=== PATIENT | female | born 1955 | race Caucasian/White ===

== ENCOUNTER 2020-07-13 06:48 | Outpatient (NON) | payer BC, SELFPAY ==
[2020-07-13 23:39] LABS: SARS-CoV-2 RNA PCR Negative
== END 2020-07-13 06:49 ==
PROVIDERS: PCP Family Medicine; Visit Provider Nurse Practitioner Family
DX: R05 Cough (principal); R53.1 Weakness; Z20.822 Contact with and (suspected) exposure to COVID-19
CPT/HCPCS: C9803; U0003

== ENCOUNTER → 2021-07-04 08:21 | Outpatient (CLI) | payer MEDICARE, OTHER, SELFPAY ==
--- NOTE | ~2021-07-04 | MR_ITS ---
EXAMINATION: MR shoulder LT wo con DATE: 07/04/2021 09:33 INDICATION: Left shoulder pain. TECHNIQUE: Magnetic resonance imaging (MRI) of the left shoulder was performed without intravenous co ntrast. Sequences included axial PD-weighted FS FSE, coronal oblique PD-weighted FS FSE and T2-weight ed FS FSE, and sagittal oblique T2-weighted FS FSE and T1-weighted FSE. COMPARISON: None. FINDINGS: Coracoacromial arch: The acromion undersurface is curved in morphology (type II). There is moderate acromioclavicular join t osteoarthritis. There is mild subacromial/subdeltoid bursitis. Rotator cuff: There is moderate supraspinatus tendinopathy and mild infraspinatus tendinopathy. Teres minor tendon is normal. Subscapularis tendon is normal. There is no asymmetric fatty atrophy of the rotator cuff m uscle bellies. Biceps tendon and glenoid labrum: Biceps tendon is in bicipital groove. There is moderate intra-articular biceps tendinopathy. There is a tear of the glenoid labrum from 11:00 to 12:00 (SLAP tear). Fluid: There is a small glenohumeral joint effusion. Bones/cartilage: There is shallow partial-thickness cartilage loss of glenoid and humeral head with mild subchondral e nelida-like signal intensity. IMPRESSION: 1. Moderate rotator cuff tendinopathy. No tear. 2. Mild glenohumeral joint chondrosis. SLAP tear. 3. Mild intra-articular biceps tendinopathy. 4. Mild subacromial/subdeltoid bursitis. 5. Small glenohumeral joint effusion. 6. Moderate acromioclavicular joint osteoarthritis. Reviewed, dictated and finalized at location A. 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
== END ==
PROVIDERS: PCP Family Medicine; Visit Provider Nurse Practitioner Adult Health
DX: M25.512 Pain in left shoulder (principal); M75.82 Other shoulder lesions, left shoulder; S43.432A Superior glenoid labrum lesion of left shoulder, initial encounter; M75.52 Bursitis of left shoulder; M25.412 Effusion, left shoulder; M19.012 Primary osteoarthritis, left shoulder
CPT/HCPCS: 73221

== ENCOUNTER → 2022-08-08 09:49 | Outpatient (CLI) | payer MEDICARE, OTHER, SELFPAY ==
--- NOTE | ~2022-08-08 | MR_ITS ---
MRI of the cervical spine Clinical History: Spondylosis Technique: Axial T2-weighted and gradient images, and sagittal T1-weighted, T2-weighted, and STIR jj ges were acquired. Findings: There is no fracture or subluxation of the cervical spine. Vertebral bodies maintain normal height and alignment. No focal bone marrow signal reality seen. At C2-C3, there is no disc bulge or herniation. No spinal canal stenosis, cord compression, or neural foraminal narrowing. At C3-C4, there is no disc bulge or herniation. No spinal canal stenosis, cord compression, or neural foraminal narrowing. At C4-C5, there is mild disc osteophyte complex, which minimally flattens the ventral cord. Bilateral neural foramina are mildly narrowed At C5-C6, there is mild disc osteophyte complex, resulting in mild flattening of the ventral cord. Bi lateral neural foramina are preserved. At C6-C7, there is central disc osteophyte complex resulting in mild to moderate canal stenosis and c ord compression. Bilateral neural foramina are preserved. No abnormal signal seen in the spinal cord. Paravertebral soft tissues are unremarkable. Impression: Mild to moderate canal stenosis and cord compression at C6-C7, related to central disc osteophyte com plex. Additional small disc osteophyte complexes at C4-C5 and C5-C6, which result in minimal flattening of the ventral cord. Reviewed, dictated and finalized at [facility]. 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 Additional small disc osteophyte complexes at C4-C5 and C5-C6, which result in minimal flattening of the ventral cord.
== END ==
PROVIDERS: PCP Family Medicine
DX: R29.2 Abnormal reflex (principal); M47.812 Spondylosis without myelopathy or radiculopathy, cervical region
CPT/HCPCS: 72141

== ENCOUNTER 2024-11-03 15:44 | Emergency (ER) | payer MEDICARE, OTHER, SELFPAY ==
--- NOTE | ~2024-11-03 | XR_ITS ---
XR chest 2V Ordering provider: Tee Cook MD History: 69 years Female with . CP, SOME SOB . Comparison: June 03, 2006 the FINDINGS: MEDIASTINUM: The cardiac silhouette is not enlarged. LUNGS: No infiltrates, effusions or pneumothorax. OTHER: No free air under the diaphragm. IMPRESSION: No acute cardiopulmonary pathology. Reviewed, dictated and finalized at location A.
--- NOTE | ~2024-11-03 | CT_ITS ---
CTA brain carotid Ordering provider: Lenore Piper III, DO History: . [place] . Comparison: Bl Technique: CT angiogram head and neck was performed following timed intravenous injection of contrast . Thin slice axial images and reformatted coronal images were obtained. Three dimensional reformatted images of the brain were also obtained using a [email or web address] workstation. Radiation reduction technique ut ilized.The dose-length product was 1517.82 mGy-cm. 100 mL Omnipaque 350 was given IV. FINDINGS: HEAD: --ANTERIOR AND MIDDLE CEREBRAL ARTERIES AND BRANCHES: Normal caliber and contour. --INTERNAL CAROTID ARTERIES: no significant stenosis. No occlusion. --BASILAR ARTERY AND BRANCHES: Normal caliber and contour. No atheromatous disease. --POSTERIOR CEREBRAL ARTERIES: Normal caliber and contour --POSTERIOR COMMUNICATING ARTERIES: The left is noted and continues as the posterior cerebral artery. The right is marked visualized which is probably related to congenital absence or small size. --ANEURYSM: None visualized. --BRAIN: Normal for patient's age. --BONES AND SUPERFICIAL SOFT TISSUES: Normal. --PARANASAL SINUSES AND MASTOIDS: Well aerated. NECK: --RIGHT CERVICAL CAROTID SYSTEM: Normal caliber and contour. Percent stenosis per NASCET criteria is 0%. No carotid dissection. Otherwise, no significant atheromatous disease or stenosis of the cervical carotid system. --LEFT CERVICAL CAROTID SYSTEM: Normal caliber and contour. Percent stenosis per NASCET criteria is 0%. No carotid dissection. Otherwise, no significant atheromatous disease or stenosis of the cervical carotid system. --VERTEBRAL ARTERIES: Normal caliber and contour. --VISUALIZED AORTIC ARCH AND BRANCHING VESSELS: Normal. --SOFT TISSUES: Normal. --CERVICAL SPINE: Age appropriate degenerative changes. Prominent osteophyte seen at the level of C6-C7. MRI is advised to exclude cord compression. IMPRESSION: 1. Normal CTA head. 2. Normal CTA of the neck . Percent stenosis per NASCET criteria is 0%. 3. Left posterior communicating artery continues as the left posterior cerebral artery. 4. Very prominent osteophytes at the level of C6-C7. MRI is advised to evaluate for cord compression . Reviewed, dictated and finalized at location A. IMPRESSION: 1. Normal CTA head. 2. Normal CTA of the neck . Percent stenosis per NASCET criteria is 0%. 3. Left posterior communicating artery continues as the left posterior cerebra l artery. 4. Very prominent osteophytes at the level of C6-C7. MRI is advised to evaluat e for cord compression.
--- NOTE | 2024-11-03 15:46 | ECG_ITS ---
Test Date: 2024-11-03 15:56:59 Measurements Intervals [place] Rate: 74 P: 71 MA: 167 QRS: 66 QRSD: 80 T: 66 QT: 382 QTc: 426 Interpretive Statements SINUS RHYTHM No previous ECG available for comparison Electronically Signed On 11-03-2024 19:15:39 CDT by Margi Becker
[2024-11-03 15:57] VITALS: BP 163/80; PULSE 81; RESP 16; TEMP 36.9; O2SAT 100
[2024-11-03 16:10] LABS: Basophils Percent Auto 0.7 % (0.2-1.2); Eosinophils Absolute Auto 0.2 K/mm3 (0-0.3); Eosinophils Percent Auto 5.1 % (0-4.4); Hematocrit 36.8 % (37.0-47.0); Hemoglobin 12.4 g/dL (12.0-15.0); Immature Granulocyte Absolute 0.01 K/mm3 (0.00-0.031); Immature Granulocyte Percent A 0.2 % (0-0.5); Lymphocytes Absolute Auto 0.99 K/mm3 (0.9-3.2); Lymphocytes Percent Auto 22.8 % (18.3-44.2); Mean Corpuscular HGB Conc 33.7 g/dl (32-36); Mean Corpuscular Hemoglobin 31.7 pg (26-34); Mean Corpuscular Volume 94.1 fl (80-100); Mean Platelet Volume 9.7 fl (7.4-10.4); Monocytes Absolute Auto 0.6 K/mm3 (0.1-0.6); Monocytes Percent Auto 14.7 % (2.6-8.5); Neutrophils Absolute Auto 2.5 K/mm3 (1.3-6.7); Neutrophils Percent Auto 56.5 % (45.5-73.1); Platelet Count Result 255 k/mm3 (150-375); Red Blood Count 3.91 M/mm3 (4.2-5.4); Red Cell Distribution Width 12.7 % (11.5-14.5); White Blood Count 4.3 K/mm3 (4.5-10.0)
[2024-11-03 16:22] LABS: INR 0.9; Prothrombin Time 12.6 Seconds (11.1-14.7)
[2024-11-03 16:23] LABS: Partial Thromboplastin Time 22.6 Seconds (22.3-36.8)
[2024-11-03 16:26] LABS: Alanine Aminotransferase 10 U/L (6-35); Albumin Level 4.8 g/dL (3.5-5.1); Alkaline Phosphatase 59 U/L (38-126); Anion Gap 11 mmol/L (4-12); Aspartate Amino Transferase 30 U/L (14-36); Bilirubin,Total 0.4 mg/dL (0.2-1.3); Blood Urea Nitrogen 17 mg/dL (7-17); Carbon Dioxide 24 mmol/L (22-30); Chloride 103 mmol/L (98-107); Estimated CRCL calculation 48 ml/min; Estimated Glomerular Filt Rate > 60; Glucose 93 mg/dL (65-110); Lipase 104 U/L (23-300); Potassium 3.6 mmol/L (3.4-5.0); Sodium 138 mmol/L (137-145)
--- NOTE | 2024-11-03 16:35 | ED_ITS ---
HPI - Chest Pain General Chief Complaint: Chest Pain <Lenore Piper III, DO - Last Filed: 11/07/24 15:31> Stated Complaint: Chest pain ,neck/jaw and shortness of breath <Lenore Piper III, DO - Last Filed: 11/07/24 15:31> Time Seen by Provider: 11/03/24 16:25 <Lenore Piper III, DO - Last Filed: 11/07/24 15:31> History of Present Illness HPI narrative: Pt presents with left neck and jaw pain. Pt has had this off and on for a few weeks and has seen ENT. Pt says today the pain got worse and she felt a little SOB so she thought she should get checked out. Pt unsure if she had pain in chest. Pt also has ALVARENGA and is concerned about FH of aneurysm. <Lenore Piper III, DO - Last Filed: 11/07/24 15:31> Related Data Home Medications: Home Medications ?Medication ?Instructions ?Recorded ?Confirmed ?Last Taken ?Type folic acid 1 mg tablet 1 mg PO DAILY 07/25/24 08/07/24 08/07/24 History methotrexate sodium 2.5 mg tablet See Rx Instructions PO WEEKLY 07/25/24 08/07/24 08/04/24 History <Lenore Piper III, DO - Last Filed: 11/07/24 15:31> Allergies/Adverse Reactions: Allergies Allergy/AdvReac Type Severity Reaction Status Date / Time No Known Allergies Allergy Mild Verified 11/03/24 15:45 <Lenore Piper III, DO - Last Filed: 11/07/24 15:31> Review of Systems 2 Review of Systems: All systems reviewed & are unremarkable except as noted in HPI and below <Lenore Piper III, DO - Last Filed: 11/07/24 15:31> PMFSH Past Medical History Medical History: Medical History (Updated 11/04/24 @ 00:01 by Background [place]) Colon cancer screening <Lenore Piper III, DO - Last Filed: 11/07/24 15:31> Family History Family History: Family History (Updated 10/09/16 @ 23:56 by DOCTOR UNKNOWN) Mother Family history of osteoporosis, Onset Age: 83 Patient's mother is Sibling Family history of alcoholism Father Family history of alcoholism, Onset Age: 52 Patient's father is <Lenore Otilio Piper III, DO - Last Filed: 11/07/24 15:31> Social History Social History: Social History Smoking status: Never smoker Alcohol intake: current Drinks per week: 4 Substance use: never Substance use type: does not use Living arrangements: with family Spiritual care concerns: No <Lenore Otilio Piper III, DO - Last Filed: 11/07/24 15:31> Exam 2 Const: General: healthy appearing and no acute distress <Lenore Otilio Piper III, DO - Last Filed: 11/07/24 15:31> Nutritional Appearance: well nourished <Lenore Otilio Piper III, DO - Last Filed: 11/07/24 15:31> Orientation/consciousness: patient oriented x3 <Lenore Otilio Piper III, DO - Last Filed: 11/07/24 15:31> Limitations: no limitations <Lenore Otilio Piper III, DO - Last Filed: 11/07/24 15:31> HENMT: Head: normal to inspection <Lenore Otilio Piper III, DO - Last Filed: 11/07/24 15:31> Eyes: Conjunctivae: conjunctivae normal <Lenore Otilio Piper III, DO - Last Filed: 11/07/24 15:31> EOM: EOMs intact bilaterally <Lenore Otilio Piper III, DO - Last Filed: 11/07/24 15:31> Neck: Neck: normal visual inspection, no lymphadenopathy and no meningeal signs <Lenore Otilio Piper III, DO - Last Filed: 11/07/24 15:31> Resp: Effort & Inspection: normal respiratory effort <Lenore Otilio Piper III, DO - Last Filed: 11/07/24 15:31> Auscultation: clear to auscultation bilaterally <Lenore Otilio Piper III, DO - Last Filed: 11/07/24 15:31> Cardio: Rate: regular rate <Lenore Otilio Piper III, DO - Last Filed: 11/07/24 15:31> Rhythm: regular rhythm <Lenore Otilio Piper III, DO - Last Filed: 11/07/24 15:31> GI: Auscultation: normal bowel sounds <Lenore Otilio Piper III, DO - Last Filed: 11/07/24 15:31> Skin: General skin exam: normal color <Lenore Otilio Piper III, DO - Last Filed: 11/07/24 15:31> Rashes: no rashes <Lenore Otilio Piper III, DO - Last Filed: 11/07/24 15:31> Wounds: no wounds <Lenore Otilio Piper III, DO - Last Filed: 11/07/24 15:31> Neuro: General: patient oriented x3, moves all extremities and no focal motor deficits <Lenore Otilio Piper III, DO - Last Filed: 11/07/24 15:31> Speech: normal speech <Lenore Otilio Piper III, DO - Last Filed: 11/07/24 15:31> Extrem: General: normal to inspection and no clubbing, cyanosis or edema < Lenore Otilio Piper III, DO - Last Filed: 11/07/24 15:31> Psych: Mental Status: mental status grossly normal <Lenore Otilio Piper III, DO - Last Filed: 11/07/24 15:31> Affect: normal affect <Lenore Otilio Piper III, DO - Last Filed: 11/07/24 15:31> Attitude: cooperative <Lenore Otilio Piper III, DO - Last Filed: 11/07/24 15:31> Course Vital Signs Vital signs: Vital Signs Temperature 98.4 F 11/03/24 15:57 Pulse Rate 81 11/03/24 15:57 Respiratory Rate 16 11/03/24 15:57 Blood Pressure 163/80 H 11/03/24 15:57 Pulse Oximetry 100 11/03/24 15:57 Oxygen Delivery Room Air 11/03/24 15:57 Temperature 98.4 F 11/03/24 15:57 Pulse Rate 73 11/03/24 17:43 Respiratory Rate 16 11/03/24 17:43 Blood Pressure 127/66 11/03/24 17:43 Pulse Oximetry 100 11/03/24 17:43 Oxygen Delivery Room Air 11/03/24 15:57 <Lenore Otilio Piper III, DO - Last Filed: 11/07/24 15:31> Vital Signs Temperature 98.4 F 11/03/24 15:57 Pulse Rate 81 11/03/24 15:57 Respiratory Rate 16 11/03/24 15:57 Blood Pressure 163/80 H 11/03/24 15:57 Pulse Oximetry 100 11/03/24 15:57 Oxygen Delivery Room Air 11/03/24 15:57 Temperature 98.4 F 11/03/24 15:57 Pulse Rate 73 11/03/24 17:43 Respiratory Rate 16 11/03/24 17:43 Blood Pressure 127/66 11/03/24 17:43 Pulse Oximetry 100 11/03/24 17:43 Oxygen Delivery Room Air 11/03/24 15:57 <Daniel Wood MD - Last Filed: 11/03/24 19:56> MDM - Chest Pain MDM Narrative Medical decision making narrative: Pt presents with left neck and jaw pain for weeks but worse today. Pain has been intermittent but lasting for hours when occurs. will do cardiac work up and also get CTA head and neck to rule out aneurysm or carotid issues. cta unremarkable, ekg and first trop and labs unremarkable. Pt does have osteophytes at c6-7 level on cta but no real posterior neck pain or radiculopathy. will turn over to dr Wood awaiting second trop. if neg should go home. discussse all this with pt and family. <Lenore Piper III, DO - Last Filed: 11/07/24 15:31> Pt presents with left neck and jaw pain for weeks but worse today. Pain has been intermittent but lasting for hours when occurs. Will do cardiac work up and also get CTA head and neck to rule out aneurysm or carotid issues. cta unremarkable, ekg and first trop and labs unremarkable. Pt does have osteophytes at c6-7 level on cta but no real posterior neck pain or radiculopathy. Will turn over to dr Wood awaiting second trop. If neg should go home. Discussse all this with pt and family. [place]: Patient was signed out to me pending 3 hour troponin. Troponin was obtained noted to be within normal limits. Patient was insert follow-up with your family doctor within next 3-5 days return to the emergency department if any new worsening symptoms develop. She was also provided with a Cardiology referral instructed to call set up a follow-up appointment regarding her chest pain She was provided with strict return precautions and discharged home in stable condition. <Daniel Wood MD - Last Filed: 11/03/24 19:56> Differential Diagnosis Differential diagnosis: Likely stable angina, unstable angina pectoris, atypical chest pain, st elevation myocardial infarction, costochondritis and chest pain <Daniel Wood MD - Last Filed: 11/03/24 19:56> Medical Records Data Attestation: I reviewed the patient's medical records. <Daniel Wood MD - Last Filed: 11/03/24 19:56> Lab Data Attestation: I reviewed the patient's lab results. <Daniel Wood MD - Last Filed: 11/03/24 19:56> Result diagrams: 11/03/24 16:03 11/03/24 16:03 <Lenore Piper III, DO - Last Filed: 11/07/24 15:31> Labs: Lab Results 11/03/24 11/03/24 Range/Units 16:03 19:08 WBC 4.3 L (4.5-10.0) K/mm3 RBC 3.91 L (4.2-5.4) M/mm3 Hgb 12.4 (12.0-15.0) g/dL Hct 36.8 L (37.0-47.0) % MCV 94.1 (80-100) fl MCH 31.7 (26-34) pg MCHC 33.7 (32-36) g/dl RDW 12.7 (11.5-14.5) % Plt Count 255 (150-375) k/mm3 MPV 9.7 (7.4-10.4) fl Immature Gran % (Auto) 0.2 (0-0.5) % Neut % (Auto) 56.5 (45.5-73.1) % Lymph % (Auto) 22.8 (18.3-44.2) % [place] % (Auto) 14.7 H (2.6-8.5) % Eos % (Auto) 5.1 H (0-4.4) % Baso % (Auto) 0.7 (0.2-1.2) % Lymph # (Auto) 0.99 (0.9-3.2) K/mm3 [place] # (Auto) 0.6 (0.1-0.6) K/mm3 Eos # (Auto) 0.2 (0-0.3) K/mm3 Baso # (Auto) 0.0 (0.0-0.1) K/mm3 Abs Immat Gran (auto) 0.01 (0.00-0.031) K/mm3 Absolute Neuts (auto) 2.5 (1.3-6.7) K/mm3 Absolute Nucleated RBC 0.000 (0.0-0.012) K/mm3 Nucleated RBC % 0.0 (0.0-0.2) % PT 12.6 (11.1-14.7) Seconds INR 0.9 APTT 22.6 (22.3-36.8) Seconds Sodium 138 (137-145) mmol/L Potassium 3.6 (3.4-5.0) mmol/L Chloride 103 (98-107) mmol/L Carbon Dioxide 24 (22-30) mmol/L Anion Gap 11 (4-12) mmol/L BUN 17 (7-17) mg/dL Creatinine 0.81 (0.7-1.0) mg/dL Estim Creat Clear Calc 48 ml/min Estimated GFR > 60 (59 - ) Glucose 93 (65-110) mg/dL Calcium 10.0 (8.4-10.2) mg/dL Total Bilirubin 0.4 (0.2-1.3) mg/dL AST 30 (14-36) U/L ALT 10 (6-35) U/L Alkaline Phosphatase 59 (38-126) U/L Troponin I < 0.012 < 0.012 (0.000-0.034) ng/mL Total Protein 9.0 H (6.3-8.2) g/dL Albumin 4.8 (3.5-5.1) g/dL Lipase 104 (23-300) U/L <Lenore Piper III, DO - Last Filed: 11/07/24 15:31> Lab Results 11/03/24 11/03/24 Range/Units 16:03 19:08 WBC 4.3 L (4.5-10.0) K/mm3 RBC 3.91 L (4.2-5.4) M/mm3 Hgb 12.4 (12.0-15.0) g/dL Hct 36.8 L (37.0-47.0) % MCV 94.1 (80-100) fl MCH 31.7 (26-34) pg MCHC 33.7 (32-36) g/dl RDW 12.7 (11.5-14.5) % Plt Count 255 (150-375) k/mm3 MPV 9.7 (7.4-10.4) fl Immature Gran % (Auto) 0.2 (0-0.5) % Neut % (Auto) 56.5 (45.5-73.1) % Lymph % (Auto) 22.8 (18.3-44.2) % [place] % (Auto) 14.7 H (2.6-8.5) % Eos % (Auto) 5.1 H (0-4.4) % Baso % (Auto) 0.7 (0.2-1.2) % Lymph # (Auto) 0.99 (0.9-3.2) K/mm3 [place] # (Auto) 0.6 (0.1-0.6) K/mm3 Eos # (Auto) 0.2 (0-0.3) K/mm3 Baso # (Auto) 0.0 (0.0-0.1) K/mm3 Abs Immat Gran (auto) 0.01 (0.00-0.031) K/mm3 Absolute Neuts (auto) 2.5 (1.3-6.7) K/mm3 Absolute Nucleated RBC 0.000 (0.0-0.012) K/mm3 Nucleated RBC % 0.0 (0.0-0.2) % PT 12.6 (11.1-14.7) Seconds INR 0.9 APTT 22.6 (22.3-36.8) Seconds Sodium 138 (137-145) mmol/L Potassium 3.6 (3.4-5.0) mmol/L Chloride 103 (98-107) mmol/L Carbon Dioxide 24 (22-30) mmol/L Anion Gap 11 (4-12) mmol/L BUN 17 (7-17) mg/dL Creatinine 0.81 (0.7-1.0) mg/dL Estim Creat Clear Calc 48 ml/min Estimated GFR > 60 (59 - ) Glucose 93 (65-110) mg/dL Calcium 10.0 (8.4-10.2) mg/dL Total Bilirubin 0.4 (0.2-1.3) mg/dL AST 30 (14-36) U/L ALT 10 (6-35) U/L Alkaline Phosphatase 59 (38-126) U/L Troponin I < 0.012 < 0.012 (0.000-0.034) ng/mL Total Protein 9.0 H (6.3-8.2) g/dL Albumin 4.8 (3.5-5.1) g/dL Lipase 104 (23-300) U/L <Daniel Wood MD - Last Filed: 11/03/24 19:56> Discharge Plan Discharge Clinical Impression: Anterior neck pain, Chest pain <Lenore Arreguinver LUANNE, DO - Last Filed: 11/07/24 15:31> Patient Disposition: Home <Lenore Arreguinver LUANNE, DO - Last Filed: 11/07/24 15:31> Condition: Stable <Lenore Otilio Arreguinver LUANNE, DO - Last Filed: 11/07/24 15:31> Instructions: Antibiotic Form, Neck Pain (ED) <Lenore Arreguinver LUANNE, DO - Last Filed: 11/07/24 15:31> Additional Instructions: Please follow-up with your family doctor within the next 3-5 days. Return to the emergency department if any new or worsening symptoms develop. You also provided with a Cardiology referral instructed to call set up a follow-up appointment regarding her chest pain. <Lenore Otilio Piper LUANNE, DO - Last Filed: 11/07/24 15:31> Patient Language: Uzbek <Lenore Arreguinver LUANNE, DO - Last Filed: 11/07/24 15:31> Prescriptions: No Action methotrexate sodium 2.5 mg tablet See Rx Instructions PO WEEKLY Patient Comments: takes on Wednesday Rx Instructions: 6 tablets (15mg) orally weekly; folic acid 1 mg tablet 1 mg PO DAILY <Lenore Otilio Piper LUANNE, DO - Last Filed: 11/07/24 15:31> Follow-up/Referrals: Margi Becker MD [Physician] - 3 Days [place],Sara Hairston FEED IN WORKER [Primary Care Provider] - 1 Week <Lenorehelena Piper LUANNE DO - Last Filed: 11/07/24 15:31> Time of Disposition: 19:56 <Lenore Piper III, DO - Last Filed: 11/07/24 15:31> 19:56 <Daniel Wood MD - Last Filed: 11/03/24 19:56>
[2024-11-03 16:37] LABS: Troponin I < 0.012 ng/mL (0.000-0.034)
[2024-11-03 17:43] VITALS: BP 127/66; PULSE 73; RESP 16; O2SAT 100
[2024-11-03] MEDS: ASPIRIN 81 MG CHEWABLE TABLET 324 MG PO (17:43)
[2024-11-03 19:44] LABS: Troponin I < 0.012 ng/mL (0.000-0.034)
--- NOTE | 2024-11-03 19:49 | ECG_ITS ---
Test Date: 2024-11-03 19:52:52 Measurements Intervals [place] Rate: 68 P: 64 MD: 181 QRS: 61 QRSD: 84 T: 75 QT: 390 QTc: 417 Interpretive Statements SINUS RHYTHM Compared to ECG 11/03/2024 15:56:59 No significant changes Electronically Signed On 11-04-2024 11:46:38 CDT by Desmond Franklin M.D.
--- OUTSIDE RECORDS SUMMARY | 2024-11-04 14:54 | XMS_ITS | Data Portability ---
Author Organization [place] - [facility] Advisor Client Match, Main Office Address [address] [place] [address] Care Team Providers Care Complaint Manager Name Role Phone HALLIE MICHELLE Primary Care Provider [phone] HALLIE MICHELLE Referring Provider RAJAN FRANCO Primary Care Provider [phone] Assessment No assessment recorded. Plan of Treatment Reminders Order Date Submit Date Provider Last Modified By Organization Details Last Modified Time Details Appointments None recorded. Lab CBC w/ auto diff 2024 025 [facility], [address] [place], [address], 5 00:25:53 CMP, serum or plasma 2024 025 [facility], [address] [place], [address], 5 00:25:53 TSH, serum, reflex free T4 2024 025 [facility], [address] [place], [address], 5 00:25:53 lipid panel, serum 2024 025 [facility], [address] [place], [address], 5 00:25:53 HbA1c (hemoglobin A1c), blood [address] Out[facility], [address] [place], [address], 5 08:16:28 urinalysis, dipstick 2023 024 JOELLE [facility], [address], [place], [address], 4 16:45:47 ESR (erythrocyt e sedimentati on rate), blood 2023 024 [facility], [address], [place], [address], 4 08:12:06 C-reactive protein, quantitativ e, serum or plasma 2023 024 [email or web address] [facility], [address], [place], [address], 4 08:12:06 GUMARO (antinuclea r antibodies) screen, serum 2023 024 [email or web address] [facility], [address], [place], [address], 4 08:12:06 rf (rheumatoid factor), serum 2023 024 [facility], [address], [place], [address], 4 08:12:06 scleroderma (scl-70) Ab, serum 2023 024 [email or web address] [facility], [address], [place], [address], 4 08:12:07 Referral None recorded. Procedures None recorded. Surgeries None recorded. Imaging US, neck, soft tissue [email or web address] [facility], [address], [address] [address], [place], [address], 12:34:23 Medication Orders pilocarpine 5 mg tablet 2024 025 [facility]49343, [address], [place], [place], [id number], 5 12:34:31 methotrexat e sodium 2.5 mg tablet 2024 025 [facility] #76995, [address], [place], [place], [id number], 11:00:31 fluticasone propionate 50 mcg/actuati on nasal spray,suspe nsion 2024 025 [facility] #69822, [address], [place], [place], [id number], 5 11:00:32 Bactrim DS 800 mg-160 mg tablet 2023 024 [facility], [address], [place], [place], [id number], 15:43:00 Ciprodex 0.3 %-0.1 % ear drops,suspe nsion 2023 024 [facility] #17775, [address], [place], [place], [id number], 11:35:27 Patient TargetsNo targets recorded. Patient Instructions Encounter Date Encounter Id Patient Instructions Last Modified By Organization Details Last Modified Time 08/29/2024 [id number] dementia rating scale-2* JOELLE Not available 08/29/2024 12:53:45 multi-dimensiona l health assessment questionnaire* JOELLE Not available 08/29/2024 12:53:34 care plan* JOELLE Not available 08/29 12:52:39 advance directiv es: care instructions [facility] Not available 08/29/2024 11:00:26 advance care planning: care instructions [facility] Not available 08/29/2024 11:00:25 [place] Advance Directives [facility] Not available 08/29/2024 11:00:[address] [facility] lt Plan and Screening Recommendations Advance Directives - Do you have one? No You have indicated that you are capable of preparing your advance care directive Advance Directives - Do we have your advance directive on file in your health record? Primary Prevention/Interven tion (prevents or decreases the chance of common diseases from occurring) Smoking Risk: Non Smoker Alcohol Misuse Screening: Negative Weight: Appropriate Physical activity: Appropriate physical activity Nutrition: Good Fall Risk (screened today): Low Vaccines Pneumococcal: Ordered Recommended today Recommended today, but you have declined No further needed Influenza: Chronic Disease Risks Stroke: Low Risk I have no recommendations Heart Attack: Low risk I have no recommendations Clogging of the Arteries: Low risk I have no recommendations Diabetes: Low Risk I have no recommendations Secondary Prevention/Interven tion (detects treatable diseases before they may cause symptoms, disability, or ) Breast Cancer Screening with mammogram: Your next mammogram: Ordered Recommended today Cervical/Uterine/Ov mary kate Cancer Screening: No screening necessary Osteoporosis Screening: Your next DEXA in: Ordered Date Screening Last Performed: Colon Cancer Screening: Colonoscopy In: Ordered Recomme nded Date Screening Last Performed: Eye Disease Screening: Dementia Risk: Low Depression Screening: Active diagnosis, Continue current treatment plan martina Not available 08/29/2024 12:22:25 Reason for Referral None Reported. Results Created Date Observation Date Name Description Value Unit Range Abnormal Flag Note LastModifiedBy Organization Detail LastModifiedTime 04/11/20 24 04/11/2024 urina lysis , dipst ick Leukocytes (reference range: negative rene/ l) Modera te Not Available [facility] [address] [place], [address], 04/11/2024 16:42:36 04/11/2004/11/2024 urina lysis , dipst ick Nitrite (reference rage: negative mg/dl) negati ve Not Available [facility] [address] [place], [address], 04/11/2024 16:42:36 04/11/2004/11/2024 urina lysis , dipst ick Urobilinogen (reference range: 0.2-1 mg/dl) 0.2 Not Available [address], [address], 04/11/2024 16:42:36 04/11/2004/11/2024 urina lysis , dipst ick Protein (reference range: negative mg/dl) Negati ve Not Available [address], [address], 04/11/2024 16:42:36 04/11/2004/11/2024 urina lysis , dipst ick pH (reference range: 5-7) 5.0 Not Available [address], [address], 04/11/2024 16:42:36 04/11/2004/11/2024 urina lysis , dipst ick Blood (reference range: negative Ra/ l) Negati ve Not Available [address], [address], 04/11/2024 16:42:36 04/11/2004/11/2024 urina lysis , dipst ick Specific [place] (reference range: 1.005-1.030) 1.020 Not Available [address], [address], 04/11/2024 16:42:36 04/11/2004/11/2024 urina lysis , dipst ick Ketone (reference range: negative mg/dl) Trace Not Available [address], [address], 04/11/2024 16:42:36 04/11/20 24 04/11/2024 urina lysis , dipst ick Bilirubin (reference range: negative mg/dl) Small Not Available [address], [address], 04/11/2024 16:42:36 04/11/20 24 04/11/2024 urina lysis , dipst ick Glucose (reference range: negative mg/dl) Negati ve Not Available [address], [address], 04/11/2024 16:42:36 04/11/20 24 04/11/2024 urina lysis , dipst ick Appearance Clear Not Available [address], [address], 04/11/2024 16:42:36 04/11/20 24 04/11/2024 urina lysis , dipst ick Color Yellow Not Available [address], [address], 04/11/2024 16:42:36 04/12/20 24 04/13/2024 SED RATE BY MODIF IED WESTE RGREN sed rate by modified westergren 2 mm/h < or = 30 normal Not Available [facility] [address] [place], [address], 04/13/2024 17:51:51 04/12/2004/13/2024 GUMARO MULTI PLEX WITH REFLE X TO DSDNA GUMARO screen, immunoassay POSITI VE negati ve abnormal A posit john GUMARO Multi plex indic ates the prese nce of detec table antib odies to one or more of the compo nent lilian souleymane consi sting of doubl e stran ded DNA (dsDN A), chrom atin, ribon ucleo prote in (LEAF STRIPPER) , Rowell /LEAF STRIPPER (Sm/R FINISHING PAN OPERATOR), [place] (Sm), SS-A, SS-B, Sheela-1, centr omere B, Scl-7 0 and ribos omal P. Furth er labor atory testi ng may be consi dered if clini ashlyn indic ated. For addit ional infor alon yanes refer to http: //[facility] rafia esparza.Que stDia gnost ics.c om/fa q/FAQ 177 (This link is being provi ded for infor silke rodriguez/ educa tania l purpo ses only. ) Not Available [facility] [address] [address] [place], [address], 04/13/2024 17:51:51 04/12/20 24 04/13/2024 DNA (DS) ANTIB KEL DNA (ds) antibody <1 IU/mL normal IU/mL Inter preta tion < or = 4 Negat john 5-9 Indet ermin ate > or = 10 Posit john Not Available [address] [address] [place], [address], 04/13/2024 17:51:53 04/12/20 24 04/13/2024 RHEUM ATOID FACTO R rheumatoid factor 43 IU/mL <14 high Not Available [address] [place], [address], 04/13/2024 17:51:53 04/12/20 24 04/13/2024 C-VIRA CTIVE PROTE IN C-reactive protein <3.0 mg/L <8.0 normal Not Available [facility] [address] [address] [place], [address], 04/13/2024 17:51:54 09/14/19 25 09/13/2024 MAMMO , scree pradip, bilat eral No observ ation record ed. [facility] [address] , [place], [address], 09/13/2024 17:14:43 11/05/1911/03/2024 imagi ng/di jorjeos tic resul t No observ ation record ed. [facility] [address], [place], [address], 11/04/2024 10:04:52 Result Notes None recorded. Problems Name Problem SNOMED Code Status Onset Date Resolution Date Notes Provider Name and Address Organization Details Recorded Time Pain in lower limb 90763277 Completed 02/17/2024 EASTON Hussein [address], [address], [place], [address] , [employer] 4 12:08:01 Pain of left shoulder joint 42926444132 227029 Completed 202108/29/2024 EASTON Hussein [employer], [address], [place], [address] , [employer] 5 10:46:52 Abdominal pain 94630807 Completed 02/17/[address], [place], [address] , [employer] 4 12:07:28 Lichen sclerosus et atrophicu s of the vulva Completed 02/17/2024 EASTON Hussein [employer], [address], [place], [address] , [employer] 4 12:07:50 Low back pain 642228204 Active Not Available [facility] 3 13:12:08 Adhesive capsuliti s of left shoulder 57899758900 9107 Active 2021 Not Available [facility] 3 13:12:08 Lymphaden opathy 23996075 Completed 02/17/[address], [address], [place], [address] , [employer] 4 12:07:14 Otitis externa 4039968 Completed 201802/17/2024 EASTON Hussein [address], [address], [place], [address] , [employer] [place] [facility] [employer] 4 12:07:54 Pain of shoulder region 62111522 Active Not Available [facility] 3 13:12:09 Cough 89040478 Completed 02/17/2024 EASTON Hussein [address], [address], [place], [address] , [employer] [facility] [employer] 4 12:07:34 Otitis media 81293011 Completed 201802/17/2024 EASTON Hussein [address], [address], [place], [address] , [employer] [place] [employer] 4 12:07:58 Injury of chest wall 56910872 Completed 02/17/2024 EASTON Hussein [address], [address], [place], [address] , [employer] [facility] [employer] 4 12:07:42 Pain of multiple joints 51252819 Active 2022 Hallie Michelle MD [address], [address], [place], [address] , [employer] 3 13:20:13 Leukopeni a 86629655 Active 2022 Hallie Michelle MD [address], [address], [place], [address] , [employer] [facility] 3 11:57:49 Lichen planus 2946327 Active 2022 Hallie Michelle MD [address], [address], [place], [address] , [employer] 3 11:58:23 Acute situation al disturban ce 701425240 Active 2022 Hallie Michelle MD [address], [address], [place], [address] , [employer] [facility] 3 12:01:34 Pain of left knee joint 19198805514 4107 Completed 202208/29/2024 EASTON Hussein [address], [address], [place], [address] , [facility] [place] [facility] 5 10:46:05 Bilateral osteoarth ritis of knees 25369420654 9107 Active 2022 CHRISTA Ann [address], [address], [place], [address] , [facility] 3 11:54:35 Vitamin D deficienc y 13449915 Active 2023 Hallie Michelle MD [address], [address], [place], [address] , [facility] [place] [facility] 4 15:15:31 Acute otitis externa 26446620 Completed 202302/17/2024 EASTON Hussein [address], [address], [place], [address] , [facility] 4 12:07:20 Polyarthr opathy 66183491 Active 2023 EASTON Hussein [address], [place], [address] , [facility] 4 12:00:24 Generaliz ed rash 336857139 Active [address], [place], [address] , [facility] 4 12:17:50 Acute urinary tract infection 110531514 Active [address], [place], [address] , [facility] [place] [facility] 4 16:41:05 Anti-nucl ear factor detected 569437792 Active 2023 EASTON Hussein [address], [place], [address] , [facility] [employer] [facility] 4 08:34:27 Dermatomy ositis 724261394 Active 2023 EASTON Hussein [address], [place], [address] , [facility] [employer] [facility] 4 15:45:53 Seasonal allergic rhinitis 938364025 Active 2024 EASTON Hussein [address], [place], [address] , [facility] [employer] [facility] 5 10:47:01 Thyroid nodule 801263646 Active 2024 Tammy Burgos RN [facility], [facility] [employer] [facility] 5 12:31:45 Xerostomi a 81518190 Active 2024 Marco Antonio Vale MD [address], [place], [address] , [facility] [employer] [facility] [employer] [facility] 5 12:33:36 Sialoaden itis 01376375 Active 2024 Marco Antonio Vale MD [address], [place], [address] , [facility] [employer] [facility] [employer] [facility] 5 12:33:49 Problem Notes None recorded. Procedures Surgical History Date Name Laterality Status Provider Name and Address Organization Details Recorded Time 08/29/19 Medicare Wellness CPT Code, subsequent completed EASTON Hussein [address], [place], [address], [facility] [employer] [facility] 08/29/2024 11:08:24 08/26/19 Medicare Wellness CPT Code, subsequent completed Khadra Cuba RN [facility] [employer] [facility] 08/26/2023 15:18:56 07/24/19 24 colonoscopy completed Priya Dillard RN [facility] [employer] [facility] 08/29/2024 10:34:09 07/05/19 24 Date of Last Colonoscopy completed Priya Dillard RN [facility] [employer] [facility] 08/29/2024 10:34:44 02/17/20 14 colonoscopy completed Not Available [facility] 09/03/19 13:11:44 tonsillectomy completed Not Available [facility] 09/02/2022 13:11:44 Imaging Results Imaging Date Name Status LastModified by Organiz ation Details LastModified Time 09/13/2024 MAMMO, screening, bilateral completed [facility] [address], [place], [address], 09/13/2024 17:14:43 11/03/2024 imaging/diagno stic result active [facility] [address], [place], [address], 11/04/2024 10:04:52 Procedure Notes None recorded. Medical Equipment None Reported. Allergies No known drug allergies Medications Name Sig Start Date Stop Date Status Note LastModified by Organization Details LastModified Time neomycin-po lymyxin-hyd rocort 3.5 mg/mL-10,00 0 unit/mL-1 % ear solution INSTILL 4 DROPS INTO AFFECTED EAR(S) THREE TIMES DAILY 04/10 completed Not Available Not Available Not Available pilocarpine 5 mg tablet Take 1 tablet 3 times a day by oral route. 2024 active Not Available Not Available Not Avai lable Vitamin C 500 mg tablet 1 po qday 04/07 completed Not Available Not Available Not Available azithromyci n 250 mg tablet TAKE 2 TABLETS (500 MG) BY ORAL ROUTE ONCE DAILY FOR 1 DAY THEN 1 TABLET (250 MG) BY ORAL ROUTE ONCE DAILY FOR 4 DAYS 08/25 completed Not Available Not Available Not Available benzonatate 200 mg capsule Take 1 capsule 3 times a day by oral route as needed. active Not Available Not Available No t Available hydrocodone 5 mg-acetamin ophen 325 mg tablet TAKE 1 TABLET BY MOUTH EVERY 6 HOURS NEEDED FOR PAIN 05/24 completed Not Available Not Available Not Available meloxicam 15 mg tablet TAKE 1 TABLET BY MOUTH ONCE DAILY 06/24 completed Not Available Not Available Not Available bupivacaine HCl 0.5 % (5 mg/mL) injection solution Take 8 mg by injection route. 06/24 completed Not Available Not Available Not Available prednisone 20 mg tablet Take 2 tablets every day by oral route for 5 days. active Not Available Not Available No t Available Prilosec 20 mg capsule,del ayed release Take 1 capsule every day by oral route for 14 days. 08/23 completed Not Available Not Available Not Available clonazepam 1 mg tablet 1 po x 1 30 minutes prior to procedure 12/06 completed Not Available Not Available Not Available clobetasol 0.05 % topical cream APPLY CREAM TOPICALLY TWICE DAILY 12/27 completed Not Available Not Available Not Available diphenoxyla te-atropine 2.5 mg-0.025 mg tablet 1-2 tabs po q6 hours prn diarrhea active Not Available Not Available No t Available metronidazo le 500 mg tablet Take 1 tablet every 8 hours by oral route for 10 days. active Not Available Not Available No t Available tretinoin 0.05 % topical cream APPLY TOPICALLY TO FACE AT BEDTIME 05/24 completed Not Available Not Available Not Available ciprofloxac in 500 mg tablet 01/12 completed Not Available Not Available Not Available sulfamethox azole 800 mg-trimetho prim 160 mg tablet TAKE 1 TABLET BY MOUTH EVERY 12 HOURS FOR 7 DAYS DIRECTED 05/03 completed Not Available Not Available Not Available aspirin 81 mg tablet,harinder yed release Take 1 tablet every day by oral route. 12/26 completed Not Available Not Available Not Available triamcinolo ne acetonide 0.1 % topical cream APPLY TO CHEST AND ARMS TWICE DAILY FOR 10 DAYS THEN HOLD 05/24 completed Not Available Not Available Not Available ciclopirox 8 % topical solution APPLY SOLUTION TOPICALLY TO TOENAIL ONCE DAILY AT BEDTIME 06/10 completed Not Available Not Available Not Available amoxicillin 875 mg tablet Take 1 tablet every 12 hours by oral route for 7 days. active Not Available Not Available No t Available methotrexat e sodium 2.5 mg tablet Take 6 tablets every week by oral route as directed for 90 days. 2024 active Not Available Not Available Not Avai lable oxycodone-a cetaminophe n 10 mg-325 mg tablet TAKE 1 TABLET BY MOUTH EVERY 6 HOURS NEEDED FOR PAIN 06/24 completed Not Available Not Available Not Available Kenalog 10 mg/mL suspension for injection In office injection administe red by the provider 06/24 completed [facility]: [phone]- [phone] Not Available Not Available Not Available diazepam 2 mg tablet TAKE ONE TABLET BY MOUTH NEEDED 1 HOUR PRIOR TO PROCEDUE, CAN REPEAT ONCE IF NEEDED 05/24 completed Not Available Not Available Not Available neomycin-po lymyxin-dex ameth 3.5 mg/mL-10,00 0 unit/mL-0.1 % eye drops 06/10 completed Not Available Not Available Not Available diclofenac sodium 75 mg tablet,harinder yed release TAKE 1 TABLET BY MOUTH TWICE DAILY NEEDED 03/09 completed Not Available Not Available Not Available folic acid 1 mg tablet TAKE 1 TABLET BY MOUTH DAILY active Not Available Not Available No t Available hydroxyzine HCl 25 mg tablet TAKE 1 TO 2 TABLETS BY MOUTH EVERY NIGHT AT BEDTIME NEEDED FOR ITCHING 02/16 completed Not Available Not Available Not Available halobetasol propionate 0.05 % topical cream APPLY A THIN LAYER TO THE AFFECTED AREA(S) BY TOPICAL ROUTE ONCE DAILY FOR 2 WEEKS ; DO NOT EXCEED 50 G PER WEEK. 12/26 completed Not Available Not Available Not Available mupirocin 2 % topical ointment APPLY EXTERNALL Y TO WOUND TWICE DAILY active Not Available Not Available No t Available hydroxychlo roquine 200 mg tablet TAKE 1 TABLET BY MOUTH TWICE DAILY 02/16 completed Not Available Not Available Not Available estradiol 0.01% (0.1 mg/gram) vaginal cream Insert 0.1 g every day by vaginal route as directed. 12/26 completed Not Available Not Available Not Available scopolamine 1 mg over 3 days transdermal patch Apply 1 patch by transderm al route as directed. active Not Available Not Available No t Available methylpredn isolone 4 mg tablets in a dose pack 01/12 completed Not Available Not Available Not Available ondansetron 4 mg disintegrat ing tablet DISSOLVE ONE TABLET BY MOUTH FOUR TIMES DAILY NEEDED 06/24 completed Not Available Not Available Not Available fluticasone propionate 50 mcg/actuati on nasal spray,suspe nsion SHAKE LIQUID AND USE 2 SPRAYS IN EACH NOSTRIL TWICE DAILY NEEDED active Not Available Not Available No t Available oxycodone 5 mg tablet TAKE 1 TABLET BY MOUTH EVERY 4 HOURS NEEDED FOR PAIN 06/24 completed Not Available Not Available Not Available neomycin-po lymyxin-hyd rocort 3.5 mg-10,000 unit/mL-1 % ear drops,susp INSTILL 4 DROPS INTO AFFECTED EAR(S) BY OTIC ROUTE 3 TIMES PER DAY 04/10 completed Not Available Not Available Not Available Premarin 0.625 mg/gram vaginal cream 06/09 completed Not Available Not Available Not Available ciprofloxac in 0.3 %-dexametha sone 0.1 % ear drops,suspe nsion SHAKE LIQUID AND INSTILL 4 DROPS TO AFFECTED EAR TWICE DAILY FOR 7 DAYS 02/16 completed Not Available Not Available Not Available ibandronate 150 mg tablet 1 tablet monthly 06/24 completed Not Available Not Available Not Available HETAL-e 400 mg tablet 1 po qday 06/09 completed Not Available Not Available Not Available Boostrix Tdap 2.5 Lf unit-8 mcg-5 Lf/0.5 mL intramuscul ar syringe ADM 0.5ML IM UTD 06/10 completed Not Available Not Available Not Available tacrolimus 02/16 completed Not Available Not Available Not Available multivitami n 04/07 completed Not Available Not Available Not Available [place] 3 Fish Oil 04/07 completed Not Available Not Available Not Available triamcinolo ne (bulk) 02/16 completed Not Available Not Available Not Available Boniva 12/26 completed Not Available Not Available Not Available Calcium 600 + D(3) 2 po qday 04/07 completed Not Available Not Available Not Available lidocaine (PF) 10 mg/mL (1 %) injection solution In office injection administe red by the provider 06/24 completed [facility]: 0409- [phone]- 17 Not Available Not Available Not Available Zostavax (PF) 19,400 unit/0.65 mL subcutaneou s suspension ADM 0.65ML SC UTD 04/07 completed Not Available Not Available Not Available Fluvirin 45 mcg (15 mcg x 3)/0.5 mL intramuscul ar suspension 12/26 completed Not Available Not Available Not Available Fluvirin 45 mcg (15 mcg x 3)/0.5 mL intramuscul ar suspension ADM 0.5ML IM UTD 12/26 completed Not Available Not Available Not Available Fluvirin (PF) 45 mcg(15 mcg x3)/0.5 mL intramuscul ar syringe ADM 0.5ML IM UTD 12/26 completed Not Available Not Available Not Available Shingrix (PF) 50 mcg/0.5 mL intramuscul ar suspension, kit ADM 0.5ML IM UTD 06/10 completed Not Available Not Available Not Available Afluria Quad (PF) 60 mcg (15 mcg x 4)/0.5 mL IM syringe ADM 0.5ML IM UTD 12/26 completed Not Available Not Available Not Available Afluria Qd (36 mos up)(PF)60 mcg (15 mcg x4)/0.5 mL IM syringe ADM 0.5ML IM UTD 06/10 completed Not Available Not Available Not Available Flucelvax Quad (PF) 60 mcg (15 mcg x 4)/0.5 mL IM syringe ADM 0.5ML IM UTD 06/10 completed Not Available Not Available Not Available Vitals Date Recorded Body height Body mass index (BMI) Body weight Body temperature Provider Name and Address Organization Details Last Updated DateTime 12/30/2023 170.18 cm 19.1 kg/m2 81357.99 g 98 [degF] Tammy Burgos RN [facility] Advisor Client Match 12/30/2023 10:36:45 Date Recorded Body height Body mass index (BMI) Body weight Body temperature Heart rate Respiratory rate Oxygen saturation Oxygen saturation in Arterial blood by Pulse oximetry Pain severity - 0-10 verbal numeric rating [Score] - Reported Systolic blood pressure Diastolic blood pressure Provider Name and Address Organization Details Last Updated DateTime 170.18 cm 18.9 kg/m2 10269.5 3 g 97.9 [degF] 85 /min 20 /min 97 % 97 % 0 108 mm[Hg] 70 mm[Hg] Priya Dillard RN [facility] Advisor Client Match 11:38:46 Date Recorded Body height Body mass index (BMI) Body weight Body temperature Heart rate Respiratory rate Oxygen saturation Oxygen saturation in Arterial blood by Pulse oximetry Pain severity - 0-10 verbal numeric rating [Score] - Reported Systolic blood pressure Diastolic blood pressure Provider Name and Address Organization Details Last Updated DateTime 4 170.18 cm 19.3 kg/m2 60507.5 6 g 97.3 [degF] 83 /min 20 /min 98 % 98 % 2 142 mm[Hg] 80 mm[Hg] Priya Dillard RN [facility] 4 16:32:47 Date Recorded Body height Body mass index (BMI) Body weight Body temperature Heart rate Respiratory rate Oxygen saturation Oxygen saturation in Arterial blood by Pulse oximetry Pain severity - 0-10 verbal numeric rating [Score] - Reported Systolic blood pressure Diastolic blood pressure Provider Name and Address Organization Details Last Updated DateTime 5 170.18 cm 19 kg/m2 68532.3 8 g 97.9 [degF] 89 /min 20 /min 99 % 99 % 0 110 mm[Hg] 70 mm[Hg] Priya Dillard RN [facility] 5 10:32:23 Date Recorded Body height Body mass index (BMI) Body weight Body temperature Provider Name and Address Organization Details Last Updated DateTime 11/02/2024 170.18 cm 18.4 kg/m2 79842.18 g 97.7 [degF] Tammy Burgos RN [facility] 11/02/2024 12:13:48 Social History Question Answer Notes LastModified by Organizat ion Details LastModified Time Tobacco Smoking Status Never Smoker Not Available [facility] 09/02/2022 13:11:39 Do You Have An Advance Directive? No MIGRATION.[id number] 9570 Information not available 09/02/2022 What Is Your Level Of Alcohol Consumption? None Information not available 05/24/2023 Are You Blind Or Do You Have Difficulty Seeing? No MIGRATION.553976 6965 Information not available 09/02/2022 What Is Your Level Of Caffeine Consumption? Moderate MIGRATION.[id number] 0464 Information not available 09/02/2022 What Is Your Code Status? Full Code MIGRATION.[id number] 6199 Information not available 09/02/2022 In The 14 Days Before Symptom Onset, Have You Had Close Contact With A Laboratory-confir med COVID-19 While That Case Was Ill? No MIGRATION.598844 1699 Information not available 09/02/2022 In The 14 Days Before Symptom Onset, Have You Had Close Contact With A Person Who Is Under Investigation For COVID-19 While That Person Was Ill? No MIGRATION.283499 7848 Information not available 09/02/2022 Are You Deaf Or Do You Have Serious Difficulty Hearing? No MIGRATION.450112 0208 Information not available 09/02/2022 What Type Of Diet Are You Following? REGULAR MIGRATION.340674 4043 Information not available 09/02/2022 What Is Your Occupation? [employer] MIGRATION.369633 3925 Information not available 09/02/2022 Have There Been Any Changes To Your Family Or Social Situation? No MIGRATION.002620 8560 Information not available 09/02/2022 What Is The Fluoride Status Of Your Home? Unknown MIGRATION.662454 8560 Information not available 09/02/2022 Do You Use Insect Repellent Routinely? Yes MIGRATION.325870 0846 Information not available 09/02/2022 [facility] MIGRATION.020605 5839 Information not available 09/02/2022 Advance Directive- Providers Has Reviewed Directive And Consents To Follow Them (insert Provider Name With Any Objectives In Notes Field) Yes Information not available 04/11/2024 Presence Of Domestic Violence No Information no t available 04/11/2024 Guns Present In The Home? Yes Information not available 04/11/2024 Are You Able To Care For Yourself? Yes Information not available 04/11/2024 Are You Blind Or Do Yo Have Difficulty Seeing? No Information not available 04/11/2024 Are You Deaf Or Do You Have Serious Difficulty Hearing? No Information not available 04/11/2024 General Stress Level? Low Information not available 04/11/2024 Live Alone Of With Others? With Others Information not available 04/11/2024 Do You Have A Medical Power Of Custom Framing Specialist? No MIGRATION.011522 3999 Information not available 09/02/2022 What Was The Date Of Your Most Recent Tobacco Screening? 08/26/2023 [email or web address] Information not available 08/26/2023 How Many Children Do You Have? 1 Information not available 02/17/2024 Have You Ever Been Counseled For Unhealthy Alcohol Use? No MIGRATION.170689 9547 Information not available 09/02/2022 Do You Have Any Pets? No MIGRATION.955088 6121 Information not available 09/02/2022 What Is Your Relationship Status? MIGRATION.164520 4209 Information not available 09/02/2022 Do You Use Your Seat Belt Or Car Seat Routinely? No MIGRATION.080241 9629 Information not available 09/02/2022 Do You Have Smoke And Carbon Monoxide Detectors In Your Home? Yes MIGRATION.814317 0247 Information not available 09/02/2022 Are You Passively Exposed To Smoke? No MIGRATION.371487 5723 Information not available 09/02/2022 Are There Any Smokers In Your House? No MIGRATION.639037 2816 Information not available 09/02/2022 Do You Participate In Social [facility]? Yes Information not available 02/17/2024 Do You Feel Stressed (tense, Restless, Nervous, Or Anxious, Or Unable To Sleep At Night)? [id number] MIGRATION.946540 6047 Information not available 09/02/2022 Do You Use Any Illicit Or Recreational Drugs? No MIGRATION.553059 7934 Information not available 09/02/2022 Do You Use Sunscreen Routinely? Yes MIGRATION.986431 2851 Information not available 09/02/2022 Has Tobacco Cessation Counseling Been Provided? No MIGRATION.623377 2709 Information not available 09/02/2022 Have You Recently Traveled Abroad? No MIGRATION.949751 9006 Information not available 09/02/2022 Are You Currently In School? No MIGRATION.394709 1343 Information not available 09/02/2022 Do You Have Any Dietary Restrictions? No MIGRATION.463611 3824 Information not available 09/02/2022 Do You Or Have You Ever Used Any Other Forms Of Tobacco Or Nicotine? No MIGRATION.030406 7362 Information not available 09/02/2022 Sex: Unknown Functional Status Question Answer Note LastModified by Organizat ion Details LastModified Time Do you have difficulty walking or climbing stairs? No MIGRATION.5397233 026 Information not available 09/02/2022 Do you have transportation difficulties? No MIGRATION.0524318 026 Information not available 09/02/2022 Are you able to walk? [facility]WOREST MIGRATION.5539473 026 Information not available 09/02/2022 Do you have difficulty doing errands alone? No MIGRATION.1608585 026 Information not available 09/02/2022 Are you able to care for yourself? No MIGRATION.6828607 026 Information not available 09/02/2022 Do you have difficulty dressing or bathing? No MIGRATION.9548610 026 Information not available 09/02/2022 What is your exercise level? Occasional MIGRATION.8339547 026 Information not available 09/02/2022 Mental Status Question Answer Note LastModified by Organizat ion Details LastModified Time Do you have difficulty concentrating, remembering or making decisions? No MIGRATION.[id number] 6 Information not available 09/02/2022 Family History Relationship Description Onset Age of this Age Resolved Age Notes LastModified by Organization Details LastModified Time Mother Heart disease MIGRATION.[id number] Not available 09/02/2022 13:11:44 Father Cirrhosis of liver MIGRATION.[id number] Not available 09/02/2022 13:11:44 Brother Heart disease Not available 2022 11:08:34 Unspecified Relation Hypertensive disorder [facility] Not available 05/24/2023 11:09:14 Notes:No family h/o breast, colon, ovary cancer NO ENT Medical History Condition Response BLINDNESS N RHEUMATIC FEVER N KIDNEY STONES N BLADDER PROBLEMS N MRSA N OTHER # 1 N POLIO N LUNG DISEASE/DISORDER N HISTORY OF DRUG ABUSE N RADIATION / CHEMOTHERAPY N COPD N Other # 2 N BLOOD DISEASES N SURGERY N EAR OR HEARING PROBLEMS N MUMPS N SHINGLES N FEMALE PROBLEMS / INFECTIONS N BOWEL PROBLEMS N DEPRESSION (INCLUDING POST ) N STROKE/TIA N THYROID DISEASE N ULCERS N BENIGN PROSTATIC HYPERPLASIA N MEASLES N CERVICALGIA N TB SKIN TEST N HYPOTENSION N MYOCARDIAL INFARCTION N PARAPELGIA N OBESITY N GERD/NAUSEA N ANEURYSM N URINARY/BLADDER/KIDNEY PROBLEMS N CORONARY ARTERY DISEASE (CAD) N MENIERE'S DISEASE N ADDICTION CONCERNS N ENDOMETRIOSIS N USE OF BLOOD THINNERS N SKIN PROBLEMS Y EMPHYSEMA N GASTROINTESTINAL DISORDER N MUSCLE,JOINT OR BONE PROBLEMS N GASTROINTESTINAL BLEEDING N BLOOD CLOTS N ASTHMA N CATARACTS N ERECTILE DYSFUNCTION N GI PROBLEMS N CHF N Low Testosterone N NEUROPATHY N INFERTILITY N AIDS/HIV N FRACTURES N CHEMOTHERAPY / RADIATION N VISION/EYE PROBLEMS N LIVER DISEASE N MALE HYPOGONADISM N HYPERTENSION N TOURETTE'S N ANXIETY DISORDER N BLOOD TRANSFUSION N ANEMIA/BLOOD DISORDER N CHRONIC EAR INFECTIONS N BRONCHITIS N TUBERCULOSIS N GLAUCOMA N FOOT PROBLEM N DIVERTICULITIS N SLEEP APNEA N CHICKENPOX N ALLERGIES/HAYFEVER N INFECTIOUS DISEASE N PROSTATE N HEART ARRHYTHMIA N INSOMNIA N HIGH CHOLESTEROL / HYPERLIPIDEMIA N EYE PROBLEMS N HYPERTHYROIDISM N EATING DISORDER N EDEMA N CHRONIC PAIN SYNDROME N CONSTIPATION N CAROTID BLOCKAGE N BACK / NECK PROBLEMS N HAVE YOU BEEN HOSPITALIZED OR SEEN IN [facility] IN THE PAST YEAR ? N ATHEROSCLEROSIS N BREAST PROBLEMS N DIALYSIS N ECZEMA N FIBROMYALGIA N OSTEOPOROSIS Y ARTHRITIS Y NO SIGNIFICANT PAST MEDICAL HISTORY N APPENDICITIS N DIABETES, TYPE N BAD TEETH N HEARTBURN / REFLUX N ADD/ADHD N AUTISM SPECTRUM DISORDER (ASD) N HEPATITIS / LIVER DISEASE N PULMONARY DISEASE N GOUT N SLEEP DISORDER N ALZHEIMER'S DISEASE N PAIN N DEMENTIA N HERPES N SEIZURES/EPILEPSY N HEADACHES/MIGRAINES N VASCULAR DISEASE N PACEMAKER N DIZZINESS N HEART DISEASE/HEART PROBLEMS N KIDNEY DISEASE N SCARLET FEVER N MULTIPLE SCLEROSIS N DEVELOPMENTAL OR BEHAVIORAL DISORDERS N MENTAL DISORDER/ILLNESS N CANCER: SPECIFY N CARDIAC ARRHYTHMIA N PNEUMONIA N ATRIAL FIBRILLATION N Gall Stones N PULMONARY EMBOLISM N AUTOIMMUNE DISEASE N Gynecological History Statement/Question Response If Post Menopausal, Age at Menopause 51 Date of Last Pap Smear Date of Last Colonoscopy 07/05/2023 Most Recent Mammogram Most Recent Bone Density Obstetrics History GPAL:G 2 P 2 0 0 0 Type Value Full Term 2 Total 2 Immunizations Vaccine Type Date Status Note Provider Nam e and Address Organization Details Recorded Time Influenza, high-dose, quadrivalent, PF 3 completed Hallie Michelle MD [address] [place] [address], [id number], Amanda Huff DBA [facility] 04/02/2023 09:30:17 Influenza, split virus, trivalent, PF 3 completed Priya Dillard RN null, [email or web address] 02/17/2024 11:33:29 influenza, unspecified formulation 2 completed Not Available [facility] 09/02/2022 13:14:40 COVID-19, mRNA, LNP-S, PF, 3 mcg/0.2 mL dose, yarelis-sucrose 1 completed Priya Dillard RN null, Amanda Huff DBA [facility] Advisor Client Match 02/17/2024 11:33:29 Influenza, split virus, quadrivalent, preservative 8 completed Not Available [facility] 09/02/2022 13:14:40 Tdap 2 completed Not Available [facility] 09/02/2022 13:14:40 Tdap 9 completed Priya Dillard RN null, [facility] 02/17/2024 11:33:29 Influenza, split virus, quadrivalent, preservative 9 completed Priya Dillard RN null, [facility] 02/17/2024 11:33:29 pneumococcal polysaccharide PPV23 2 completed Not Available [facility] 09/02/2022 13:14:41 Past Encounters Encounter ID Performer Location Encounter Start Date Encounter Closed Date Diagnosis/Indication Diagnosis SNOMED-CT Code Diagnosis ICD10 Code Diagnosis Note [id number] Hallie Michelle MD [facility] Primary Care [facility] [address] [facility] [address] [place] [address] 06/11/2021 00:00:00 07/03/2021 08:46:52 [id number] Stephan Downing MD [facility] [place] [address] [facility] [address] [place] [address] 07/23/2021 00:00:00 07/23/2021 16:49:45 [id number] Stephan Downing MD [facility] [place] [address] [facility] [address] [place] [address] 11/25/2021 00:00:00 11/25/2021 12:58:05 [id number] Stephan Downing MD [facility] [place] [address] [facility] [address] [place] [address] 02/24/2022 00:00:00 02/24/2022 12:25:58 [id number] aHllie Michelle MD [facility] Primary Care [facility] [address] [facility] [address] [place] [address] 06/24/2022 00:00:00 07/03/2022 10:07:40 [id number] Hallie Michelle MD [facility] Primary Care [facility] [address] [place] [address] 03/16/2023 11:31:31 03/16/2023 13:43:09 Leukopenia 31893829 D72.819 repeat cbc in April to monitor Lichen planus 8225872 L4 3.9 Acute situ ational disturbance 647550744 F43.20 Administra tion of influenza vaccine 41043189 Z23 [id number] Madi Torres MD [facility] [place] [address] [place] [address] 05/24/2023 10:50:28 05/24/2023 12:01:16 Pain of left knee joint 1644467431 69823 M25.562 Bilateral osteoarthritis of knees 0586751641 77322 M17.0 [id number] Hallie Michelle MD [facility] Primary Care [facility] [address] [facility] [address] [place] [address] 08/26/2023 15:02:15 08/26/2023 15:49:40 Adult health examination 960288506 Z00.00 Z13.1 Z13.220 Tdap done 2018Shingr ix done 04/2020 and 06/2020Pne umovax 23 done 2021Influe nza 03/27-recom mend yearlyMamm ogram 06/26 abnormal with normal f/u 07/2023 (done by trial mgr Dr. Gage)DE XA- Known osteoporos is and Dr. Xiomara Gage last DEXA 08/2022 and was taken off ibandronat e due to improvemen t (osteopeni a). Repeat olono scopy done 2013 repeat due now, referral givenPap/P romina - Follows Dr. Xiomara Robles c screen negative 3Check fasting labs Vitamin D deficiency 347 09773 E55.9 Lichen planus 5186494 L4 3.9 Z79.899 Screening for malignant neoplasm of colon 632737707 Z12.11 [id number] Marco Antonio Vale MD [facility] [place] [address] [place] [address] 12/30/2023 10:05:44 12/30/2023 16:05:37 Acute otitis externa 10755210 H60.420 [id number] Damian Price MD [facility] [address] [address] 02/17/2024 11:28:21 02/17/2024 12:32:44 Polyarthropathy 80383399 M13.0 Generalized rash 3514216 06 R21 Likely eczema, seeing dermAdvise d to avoid prolonged sunlight exposuread vised to use unscented lotions [id number] Damian Price MD [facility] [address] [address] 04/11/2024 16:23:35 04/11/2024 16:45:27 Acute urinary tract infection 448507734 N39.0 [id number] Damian Price MD [address] [address] 08/29/2024 10:18:34 08/29/2024 11:23:23 Dermatomyositis 087479192 M33.13 Notes symptoms are well managed with methotrexa teAppointm ent with Rheum in September [facility] th examination 307864322 Z00.00 Patient is in overall good healthDisc ussed diet and exerciseRe viewed safety measures in the homeHealth maintenanc e reviewedPa tient questions answered Screening for disorder 113193241 Z13.9 Seasonal a llergic rhinitis 260790686 J30.2 Cholesterol screening 27 1198115 Z13.220 Thyroid di sorder screening 647368313 Z13.29 Diabetes m ellitus screening 551382422 Z13.1 [id number] Marco Antonio Vale MD [facility] [place] [address] [place] [address] 11/02/2024 11:45:19 11/03/2024 15:58:08 Xerostomia 39685972 K11.7 Sialoadenitis 68188280 K 11.20 Health Concerns Section Related Observation LastModified by Organization Detai ls LastModified Time None Recorded Concern Status LastModified by Organization Details LastModified Time None Recorded Advance Directives Directive N: Payers Encounter Date Sequence Insurance Name Policy Number Policy Langston Covered Member ID Langston Member ID Guarantor Name 12/30/2023 1 [place] Georgiana Ha [id number] Georgiana Morrisstein 12/30/2023 2 [employer] (MEDICARE SUPPLEMENT) Georgiana Morrisstein [id number] Georgiana Nunezfenstein 02/17/2024 1 [place] Georgiana Morrisstein [id number] Georgiana Nunezfenstein 02/17/2024 2 [employer] (MEDICARE SUPPLEMENT) Georgiana Morrisstein [id number] Georgiana Nunezfenstein 04/11/2024 1 [place] Georgiana Morrisstein [id number] Georgiana Nunezfenstein 04/11/2024 2 [employer] (MEDICARE SUPPLEMENT) Georgiana Morrisstein [id number] Georgiana Nunezfenstein 08/29/2024 1 [place] Georgiana Morrisstein [id number] Georgiana Nunezfenstein 08/29/2024 2 [employer] (MEDICARE SUPPLEMENT) Georgiana Morrisstein [id number] Georgiana Nunezfenstein 11/02/2024 1 [place] Georgiana Morrisstein [id number] Georgiana Nunezfenstein 11/02/2024 2 [employer] (MEDICARE SUPPLEMENT) Georgiana Morrisstein [id number] Georgiana Ha Notes Date Note Type Note Provider Name and Address Organization Details Recorded Time 12/30/2023 text/html This patient reports a 1 week history of left ear pain. There has been no hearing loss or vertigo. She reports that she is somewhat better now. She has a global rash which is being investigated. Marco Antonio Vale MD [address] [place] [address], [place] [address], [place], [address], [facility] 12/30/2023 10:59:42 02/17/2024 text/html Georgiana Ha is a 68 year old female patient here today to establish care. Last December, lichen planus, multiple steroid creams did not help so started plaquenil. Finished this December and then new rashes started. Had red welts on JEANETTE arms and JEANETTE backs of legs, was told to try Zyrtec. Has noticed hair loss since.Did get braces in November of 2022, believes may be related.Does go out on a boat frequently.Managed by derm Has had low WBC and lymphocytes since 04/2023 Does have osteopenia, has take alendronate on and off for several years. Managed by Dr. Gage Flu shot: OVID Vaccines: 05/2021, x2Tdap: 2019Pneumococcal: 06/24/2022hingrix : 2016Mammogram: 2023, managed by Dr. SalamancaEXA: 2022WWE: olonoscopy: due 02/2024 EASTON Hussein [address] [facility], [place] [address], [place], [address], [email or web address] 02/17/2024 12:25:44 04/11/2024 text/html Georgiana Ha is a 69 year old female patient here today for a possible UTI She has had some burning with urination today only. No other symptoms. She had a suture removed by Derm from a biopsy on her back yesterday and was told it is likely infection. A culture was taken. Will choose Bactrim for double coverage. EASTON Hussein [address] [facility], [place] [address], [place], [address], [email or web address] 04/11/2024 16:46:21 08/29/2024 text/html Georgiana Ha is a 68 year old female patient here today to establish care. Dermatomyositis, is taking methotrexate. Notes her rash has cleared and she feels her skin is in better condition than ever. Did note a breakout while prepping for colonoscopy. Notes dry mouth and a foreign body feeling in the right side of her throat. Chronic dry eye as well. Has had low WBC and lymphocytes since 04/2023 Does have osteopenia, has take alendronate on and off for several years. Does take folic acid 1 mg PO daily. Managed by Dr. Gage Small lesions to rt medial ankle, will not heal Flu shot: 09/2023COVID Vaccines: 05/2021, x2Tdap: 2019Pneumococcal: 2Shingrix : 2016Mammogram: 2023, managed by Dr. Ling: 2022WWE: olonoscopy: due 02/2024 EASTON Hussein [address] [facility], [place] [address], [place], [address], Amanda Huff DBA [facility] [employer] [facility] 08/29/2024 12:22:49 11/02/2024 text/html This patient is here for ear follow-up but she reports swelling on both sides of her neck but mostly on the right. Has occasional difficulty swallowing. 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 She reports dry mouth all the time. Marco Antonio Vale MD [address], [place] [address], [place], [address], [employer] [facility] 11/02/2024 12:34:48 OBGyn Episode No OBEpisode recorded.
--- OUTSIDE RECORDS SUMMARY | 2024-11-04 14:55 | XMS_ITS | Clinical Summary ---
Author Organization [facility] Address [address] [place] [address] Phone Care Team Providers Care Drilling Inspector Name Role Phone Naheed Michelle MD Primary Care Provider + Allergies No known active allergies Medications diclofenac sodium (VOLTAREN) 75 mg Tablet, Delayed Release (E.C.) diclofenac sodium 75 mg tablet,delayed release TAKE 1 TABLET BY MOUTH TWICE DAILY NEEDED Active estradioL (ESTRACE) 0.01% (0.1 mg/g) vaginal cream INSERT 0.5 G TWICE A WEEK AT BEDTIME. 43 Gram 1 1 Active Additional Information Patient not taking.Reported on 10/31/2024 neomycin-polymy alesha-dexamethaso ne (MAXITROL) 3.5mg/mL-10,000 unit/mL-0.1 % suspension neomycin-polymyx in-dexameth 3.5 mg/mL-10,000 unit/mL-0.1% eye drops Active fluticasone propionate (FLONASE) 50 mcg/spray [place], Suspension nasal inhaler fluticasone propionate 50 mcg/actuation nasal spray,suspension USE 1 SPRAY(S) IN EACH NOSTRIL ONCE DAILY Active calcium as carbonate (CALTRATE) 1,500 mg (600 mg elemental) Tablet Take 600 mg by mouth. Active Docosahexanoic Acid-Eicosapent 120-180 mg Capsule Take by mouth. Activ e tretinoin (RETIN-A) 0.05 % Cream APPLY TOPICALLY TO FACE AT BEDTIME 3 Active ascorbic acid (VITAMIN C) 100 mg Tablet, Chewable Take 1 Tablet by mouth. Active methotrexate (RHEUMATREX) 15 mg Tablet Take 15 mg by mouth every 7 days. Active folic acid (FOLVITE) 1 mg tablet Take 1 mg by mouth daily. Active Active Problems Problem Noted Date Diagnosed Date Abdominal pain 08/17/2022 Cough 08/17/2022 Injury of chest wall 08/17/2022 Lichen sclerosus et atrophicus of the vulva 08/05 Low back pain 08/17/2022 Pain in lower limb 08/17/2022 Shoulder pain 08/17/2022 Lymphadenopathy 09/12/2021 Otitis externa 12/26/2018 Encounters Date Type Department Care Team Description 10/31/2024 11:45 AM CDT Office Visit [facility]KE [facility]JUST[facility] - [facility] [address] [facility] [address] [place] [phone] Xiomara Gage MD Encounter for gynecological examination without abnormal finding (Primary Dx); Declined influenza vaccine; Screening mammogram, encounter for; Vaginal dryness 10/31/2024 Abstract [facility] AIR BRAKE ADJUSTER - [facility] [address] [facility] [address] [place] [phone] Xiomara Gage MD 09/20/2024 External Device Data [facility] ABSTRACTION Provider, Abstract 09/14/2024 Telephone [facility]KE [facility]JUSTER - [facility] [address] [facility] [address] [place] [phone] Ion Celaya MD Imaging Results 09/14/2024 Results Follow-Up [facility]KE [facility]JUST[facility] - [facility] [address] [facility] [address] [place] [phone] Ion Celaya MD XR DEXA BONE DENSITY AXIAL 1 OR MORE SITES 09/13/2024 9:49 AM CDT - 09/13/2024 11:59 PM CDT Hospital Encounter [facility] [address] [place] [phone] Xiomara Gage MD Discharge Disposition: Home or Self Care 09/13/2024 9:27 AM CDT - 09/13/2024 11:59 PM CDT Hospital Encounter [facility] A [address] [place] [address] Ion Celaya MD Discharge Disposition: Home or Self Care 09/13/2024 Results Follow-Up [facility] BRAKE ADJUSTER - [facility] [address] [phone] Xiomara Gage MD MAMMO 3D CLARI SCREEN BILAT W OR WO CAD 09/09/2024 External Device Data [facility] ABSTRACTION Provider, Abstract 09/08/2024 External Device Data [facility] ABSTRACTION Provider, Abstract 09/06/2024 External Device Data [facility] ABSTRACTION Provider, Abstract 09/05/2024 External Device Data [facility] ABSTRACTION Provider, Abstract 08/22/2024 External Device Data [facility] ABSTRACTION Provider, Abstract 08/10/2024 Telephone [facility] AIR BRAKE ADJUSTER - [facility] [address] [phone] Ion Celaya MD new bones scan order from Last 3 Months Family History Medical History Relation Name Comments Heart Disease Other Family History Breast Cancer Neg Hx Cancer Neg Hx Ovarian Cancer Neg Hx Relation Name Status Comments Other Family History Social History Tobacco Use Types Packs/Day Years Used Date Smoking Tobacco: Former Passive Smoke Exposure: Past Smokeless Tobacco: Never Tobacco Cessation:Counseling Given: Not Answered Alcohol Use Standard Drinks/Week Comments Yes 0 (1 standard drink = 0.6 oz pur e alcohol) Comments No Sex and Gender Information Value Date Recorded Sex Assigned at Not on file Legal 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 Gender Identity Not on file Sexual Orientation Not on file Occupation Industry Job Start Date Job End Date Not on file Not on file Not on file Not on file Last Filed Vital Signs Vital Sign Reading Time Taken Comments Blood Pressure 122/76 10/31/2024 11:42 AM CDT Pulse - - Temperature - - Respiratory Rate - - Oxygen Saturation - - Inhaled Oxygen Concentration - - Weight 53.3 kg (117 lb 9.6 oz) 10/31/2024 11:42 AM CDT Height 167.6 cm (5' 6 ) 10/31/2024 11:42 AM CDT Body Mass Index 18.98 10/31/2024 11:42 AM CDT Plan of Treatment Health Maintenance Due Date Last Done Comments DTAP/TDAP/TD VACCINES (1 - Tdap) 02/25/1975 FIT-DNA Q 3 years 02/25/2001 Flex Sig/CT Colonography Q 5 years 02/25/2001 PNEUMOCOCCAL VACCINE 50+ YEA RS (1 of 1 - PCV) 02/25/2006 ZOSTER VACCINE (1 of 2) 02/25/2006 FIT/FOBT Q 1 year 07/19/2021 07/19/2020, 07/14/2019 BREAST CANCER SCREENING 09/13/2025 09/14/19 25, 07/30/2023, 07/02/2023, Additional history exists OSTEOPOROSIS SCREENING 09/13/2029 5, 09/04/2022, 08/15/2021, Additional history exists RSV VACCINE (60+ or ) (1 - 1-dose 75+ series) 02/25/2031 COLORECTAL SCREENING 07/24/2033 07/24/2023, 07/05/2023, 02/16/2014 Colorectal Cancer Screening 07/24/2033 INFLUENZA VACCINE Completed 10/31/2024 Procedures Procedure Name Priority Date/Time Associated Diagnosis Comments MAMMO 3D CLARI SCREEN BILAT W OR WO CAD Routine 09/13/2024 10:17 AM CDT Visit for screening mammogram XR DEXA BONE DENSITY AXIAL 1 OR MORE SITES Routine 09/13/2024 9:50 AM CDT Senile osteoporosis Age-related osteoporosis without current pathological fracture Screening for osteoporosis POC OCCULT BLOOD, IMMUNO, QUAL, STOOL Routine 07/19/2020 12:07 PM YARDING ENGINEER Encounter for screening for malignant neoplasm of rectum from Last 3 Months or Most Recently Relevant to Health Maintenance Results * MAMMO 3D CLARI SCREEN BILAT W OR WO CAD (09/13/2024 10:17 AM CDT) Anatomical Region Laterality Modality Breast Bilateral Mammography 09/13/2024 10:1 7 AM CDT Impressions 09/13/2024 10:29 AM CDT IMPRESSION: No mammographic evidence of malignancy in the bilateral breasts. Routine screening mammography is recommended in one year. OVERALL FINAL ASSESSMENT: BI-RADS CATEGORY 1 - Negative DICTATION LOCATION: [facility] 09/13/2024 10:29 AM CDT EXAMINATION: BILATERAL SCREENING DIGITAL MAMMOGRAPHY WITH TOMOSYNTHESIS AND CAD DATE: 09/13/2024 10:17 AM HISTORY: Routine screening mammography. COMPARISON: Mammography with dates ranging from 07/30/2023 to 10/16/2013. TECHNIQUE: A bilateral screening mammogram was performed. Low-dose full-field digital breast tomosynthesis examination was performed with 2D and 3D acquisitions. Examination is read in conjunction with computer aided detection. BREAST COMPOSITION: The breasts are extremely dense, which lowers the sensitivity of mammography. FINDINGS: There are no suspicious masses, suspicious calcifications, or other suspicious findings in either breast. There has been no suspicious interval change. us Xiomara Gage MD MAMMO ORDERABLES Final Res ult * XR DEXA BONE DENSITY AXIAL 1 OR MORE SITES (09/13/2024 9:50 AM CDT) Anatomical Region Laterality Modality Digital Radiogra phy 09/13/2024 9:50 AM CDT Impressions 09/13/2024 10:07 AM CDT IMPRESSION: Osteopenia. Lumbar Spine: T-score: -2.0 Left Femoral Neck: T-score: -1.0 Left Total Femur: T-score: -1.2 Right Femoral Neck: T-score: -1.7 Right Total Femur: T-score: -1.7 FRAX FRACTURE RISK ASSESSMENT: 10-Year probability of fracture Major osteoporotic fracture: 14.9 % Defined as fracture of the spine, hip or shoulder. Hip fracture: 2.3 % This is a summary page. Please refer to the complete detailed report found in: Imaging Section of the [facility] EMR. Definitions: Normal: T-score above -1.0 Osteopenia T-score less than -1.0 and above -2.5 Osteoporosis: T-score <= -2.5 Note: Clinical Osteoporosis may be based on other factors besides DXA calculated BMD. OTher factors include and are not limited to fragility fractures, subclinical compression fractures,osteopenia and elevated FRAX Scores. A major osteoporotic fracture is defined as a fracture of the spine, forearm, hip or shoulder. Dictated by Dr. Louis Dallas MD DICTATION LOCATION: 09/13/2024 10:07 AM CDT EXAMINATION: BONE DENSITY STUDY (DXA) DATE: 09/13/2024 9:50 AM HISTORY: 69 years Female. Postmenopausal. Osteopenia. PROCEDURE: Planar images of the lumbar spine and hip(s). The [employer] DEXA scanner for bone mineral density determination (BMD). Prior bone density: 10/16/2013 FINDINGS: Lumbar Spine (L1-L4): T-score: -2.0 Prior T-score: -2.4 Left Femoral Neck: T-score: -1.0 Prior T-score: -1.0 Left Total Femur: T-score: -1.2 Right Femoral Neck: T-score: -1.7 Prior T-score: -1.2 Right Total Femur: T-score: -1.7 TECHNICAL ISSUES: None. Procedure Note Louis Dallas MD - 09/13/2024 EXAMINATION: BONE DENSITY STUDY (DXA) DATE: 09/13/2024 9:50 AM HISTORY: 69 years Female. Postmenopausal. Osteopenia. PROCEDURE: Planar images of the lumbar spine and hip(s). The [employer] DEXA scanner for bone mineral density determination (BMD). Prior bone density: 10/16/2013 FINDINGS: Lumbar Spine (L1-L4): T-score: -2.0 Prior T-score: -2.4 Left Femoral Neck: T-score: -1.0 Prior T-score: -1.0 Left Total Femur: T-score: -1.2 Right Femoral Neck: T-score: -1.7 Prior T-score: -1.2 Right Total Femur: T-score: -1.7 TECHNICAL ISSUES: None. IMPRESSION: Osteopenia. Lumbar Spine: T-score: -2.0 Left Femoral Neck: T-score: -1.0 Left Total Femur: T-score: -1.2 Right Femoral Neck: T-score: -1.7 Right Total Femur: T-score: -1.7 FRAX FRACTURE RISK ASSESSMENT: 10-Year probability of fracture Major osteoporotic fracture: 14.9 % Defined as fracture of the spine, hip or shoulder. Hip fracture: 2.3 % This is a summary page. Please refer to the complete detailed report found in: Imaging Section of the [facility] EMR. Definitions: Normal: T-score above -1.0 Osteopenia T-score less than -1.0 and above -2.5 Osteoporosis: T-score <= -2.5 Note: Clinical Osteoporosis may be based on other factors besides DXA calculated BMD. OTher factors include and are not limited to fragility fractures, subclinical compression fractures,osteopenia and elevated FRAX Scores. A major osteoporotic fracture is defined as a fracture of the spine, forearm, hip or shoulder. Dictated by Dr. Louis Dallas MD DICTATION LOCATION: 1 Ion Celaya MD DIAGNOSTIC IMAGING ORDERABLE S Final Result * POC OCCULT BLOOD, IMMUNO, QUAL, STOOL (07/19/2020 12:07 PM YARDING ENGINEER) OCCULT BLOOD, IMMUNOASSAY POC Negative Negative [facility] AIR BRAKE ADJUSTER TOWER A [address] INTERNAL KIT QC Pass Pass [facility] AIR BRAKE ADJUSTER TOWER A [address] KIT LOT NUMBER POC [id number] [facility] [employer] [facility]RAKE [facility]JUST[facility] TOWER A [address] KIT EXPIRATION DATE POC [id number] [facility]KE [facility] TOWER A [address] Stool STOOL SPECIMEN / Unknown 07/19/2020 12:07 PM YARDING ENGINEER Xiomara Gage MD POINT OF CARE TESTING Tierney pickens Result [facility] [employer] BRAKE [employer]JUST[facility] TOWER [address] CLIA# [id number] [address] [facility] [address] [place] [address] from Last 3 Months or Most Recently Relevant to Health Maintenance [place] [address] MEDICARE PART A AND B [employer] [facility] [place] [address] Care Teams Drilling Inspector Relationship Specialty Start Date End Date Naheed Michelle MD [address] [place] [phone] PCP - General Family Practice 03/26/16
--- OUTSIDE RECORDS SUMMARY | 2024-11-04 14:55 | XMS_ITS | Encounter Summary ---
Author Organization [facility] Address 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 Gender Identity Not on file Sexual Orientation Not on file documented as of this encounter Plan of Treatment Not on file documented as of this encounter Procedures Procedure Name Priority Date/Time Associated Diagnosis Comments US BREAST UNI RIGHT COMPLETE Routine 09/26/2008 1:27 PM CDT MAMMO DIAGNOSTIC UNI RIGHT W OR WO CAD Routine 09/26/2008 1:27 PM CDT documented in this encounter Results * US BREAST UNILATERAL RIGHT (09/26/2008 1:27 PM CDT) Anatomical Region Laterality Modality Breast Right Other 09/26/2008 1:27 PM CDT Narrative 09/27/2008 7:34 AM CDT [facility] [address] [place], [place] [address] Admit Date: 09/26/2008 [place] YEPEZ Sex: F Admit Prov: ANJU CHRISTINA Date: 1955 Primary Care Prov: MAYCOL SNOW CMRN: [id number] Room: Paola SSN: [id number] IMAGING SERVICES Ordering Prov: ANJU CHRISTINA Accession Number: [id number] Interpretation RIGHT UNILATERAL FULL FIELD DIGITAL DIAGNOSTIC MAMMOGRAM WITH CAD AND RIGHT BREAST ULTRASOUND 09/26/2008 History: Focal asymmetry in superior right breast on the screening examination of 08/24/2008 performed at [facility] in [place], [place]. The subsequent diagnostic examination on 09/06/2008 from the same institution revealed a 3 mm circumscribed nodule in superior right breast seen only on the MLO view. No ultrasound finding was present. Right diagnostic mammogram and breast ultrasound requested by the referring physician. Breast composition: Heterogeneously dense which lowers the sensitivity of mammography. Technique: Multiple diagnostic mammographic views of the right breast were performed using full field digital technique. CAD was utilized.. Findings: No persistent mammographic abnormality is identified within the right breast. The nodular density described on the outside mammogram is not reproducible on the current study. No mass, architectural distortion or suspicious calcifications are present. The images were reviewed using the CAD system. Targeted high resolution ultrasound was performed through the upper right breast. No suspicious solid or cystic lesion is seen. Overall assessment: BIRADS category 1 - Negative Recommendation: Routine interval followup. Examination was reviewed with Dr. Stepan Lopez. Dictated by: IRENE CORONEL Electronically signed by: IRENE CORONEL 09/27/2008 07:34 Transcribed: 09/26/2008 22:32 AMK Procedure Note Irene Coronel - 09/27/2008 [id number] [place], [place] [address] Admit Date: 09/26/2008 GE[place]IANA YEPEZ Sex: F Admit Prov: ANUJ CHRISTINA Date: 1955 Primary Care Prov: MAYCOL SNOW CMRN: [id number] Room: Paola SSN: [id number] IMAGING SERVICES Ordering Prov: ANJU CHRISTINA Interpretation RIGHT UNILATERAL FULL FIELD DIGITAL DIAGNOSTIC MAMMOGRAM WITH CAD ANDRIGHT BREAST ULTRASOUND 09/26/2008 History: Focal asymmetry in superior right breast on the screening examination of 08/24/2008 performed at [place], [place]. The subsequent diagnostic examination on 09/06/[facility] revealed a 3 mm circumscribed nodule in superior rightbreast seen only on the MLO view. No ultrasound finding was present. Right diagnostic mammogram and breast ultrasound requested by thereferring physician. Breast composition: Heterogeneously dense which lowers thesensitivity of mammography. Technique: Multiple diagnostic mammographic views of the right breastwere performed using full field digital technique. CAD was utilized.. Findings: No persistent mammographic abnormality is identified withinthe right breast. The nodular density described on the outside mammogramis not reproducible on the current study. No mass, architectural distortionor suspicious calcifications are present. The images were reviewed usingthe CAD system. Targeted high resolution ultrasound was performed through the upperright breast. No suspicious solid or cystic lesion is seen. Overall assessment: BIRADS category 1 - Negative Recommendation: Routine interval followup. Examination was reviewed with Dr. Stepan Lopez. Dictated by: IRENE CORONEL Electronically signed by: IRENE CORONEL 09/27/2008 07:34 Transcribed: 09/26/2008 22:32 AMK us Anju Christina MD ORDERABLES Final Result * MAMMO DIGITAL DIAG UNI RIGHT (09/26/2008 1:27 PM CDT) Anatomical Region Laterality Modality Breast Right Other 09/26/2008 1:27 PM CDT Narrative 09/27/2008 7:34 AM CDT [facility] [address], [place] [address] Admit Date: 09/26/2008 GEORGIANA YEPEZ Sex: F Admit Prov: ANJU CHRISTINA Date: 1955 Primary Care Prov: MAYCOL SNOW CMRN: [id number] Room: YAZMIN SSN: [id number] IMAGING SERVICES Ordering Prov: ANJU CHRISTINA Accession Number: [id number] Interpretation RIGHT UNILATERAL FULL FIELD DIGITAL DIAGNOSTIC MAMMOGRAM WITH CAD AND RIGHT BREAST ULTRASOUND 09/26/2008 History: Focal asymmetry in superior right breast on the screening examination of 08/24/2008 from [facility] in [place], [place]. The subsequent diagnostic examination on 09/06/2008 from the same institution revealed a 3 mm circumscribed nodule in superior right breast seen only on the MLO view. No ultrasound finding was present. Right diagnostic mammogram and breast ultrasound requested by the referring physician. Breast composition: Heterogeneously dense which lowers the sensitivity of mammography. Technique: Multiple diagnostic mammographic views of the right breast were performed using full field digital technique. CAD was utilized.. Findings: No persistent mammographic abnormality is identified within the right breast. The nodular density described on the outside mammogram is not reproducible on the current study. No mass, architectural distortion or suspicious calcifications are present. The images were reviewed using the CAD system. Targeted high resolution ultrasound was performed through the upper right breast. No suspicious solid or cystic lesion is seen. Overall assessment: BIRADS category 1 - Negative Recommendation: Routine interval followup. Examination was reviewed with Dr. Stepan Lopze. Assessment BIRADS: 1-Negative Recommendation: Normal interval follow-up Dictated by: IRENE CORONEL Electronically signed by: IRENE CORONEL 09/27/2008 07:34 Transcribed: 09/26/2008 22:32 AMK Procedure Note Irene Coronel - 09/27/[address] [address] Admit Date: 09/26/2008 [place] Sex: F Admit Prov: JANIE ANJU Alix Date: 1955 Primary Care Prov: MAYCOL SNOW CMRN: [id number] Room: TAYLORPaola SSN: [id number] IMAGING SERVICES Ordering Prov: ANJU CHRISTINA Interpretation RIGHT UNILATERAL FULL FIELD DIGITAL DIAGNOSTIC MAMMOGRAM WITH CAD ANDRIGHT BREAST ULTRASOUND 09/26/2008 History: Focal asymmetry in superior right breast on the screening examination of 08/24/2008 from [facility] in [place], [place]. [facility] 3 mm circumscribed nodule in superior right breast seenonly on the MLO view. No ultrasound finding was present. Right diagnosticmammogram and breast ultrasound requested by the referring physician. Breast composition: Heterogeneously dense which lowers thesensitivity of mammography. Technique: Multiple diagnostic mammographic views of the right breastwere performed using full field digital technique. CAD was utilized.. Findings: No persistent mammographic abnormality is identified withinthe right breast. The nodular density described on the outside mammogramis not reproducible on the current study. No mass, architectural distortionor suspicious calcifications are present. The images were reviewed usingthe CAD system. Targeted high resolution ultrasound was performed through the upperright breast. No suspicious solid or cystic lesion is seen. Overall assessment: BIRADS category 1 - Negative Recommendation: Routine interval followup. Examination was reviewed with Dr. Stepan Lopez. Assessment BIRADS: 1-Negative Recommendation: Normal interval follow-up Dictated by: IRENE CORONEL Electronically signed by: IRENE CORONEL 09/27/2008 07:34 Transcribed: 09/26/2008 22:32 AMK us Anju Christina MD MAMMO ORDERABLES Final Resul t documented in this encounter Visit Diagnoses Diagnosis Lump or mass in breast documented in this encounter Care Teams Vegetable Thinner Relationship Specialty Start Date End Date Naheed Michelle MD [address] [place] [phone] PCP - General Family Practice 03/26/16 documented as of this encounter
--- OUTSIDE RECORDS SUMMARY | 2024-11-04 14:55 | XMS_ITS | Clinical Summary ---
Author Organization [facility] [employer] Address [address] [place] [address] Care Team Providers Care Superintendent Plant Name Role Phone Anju Lucia MD Primary Care Provider Unav ailable Source Comments [facility] [employer],non-owned Affiliates and Associated Physician Practices is amultiple site organization consisting of ambulatory clinics and hospital sitesin [place], [place], [place] and [place]. This disclosure is being madepursuant to the Care Everywhere program and may not contain all information available regarding this patient. Last updated 18.[facility] [employer] Allergies No known active allergies Medications * Be aware that medications may not be up to date on this document. Alwaysverify current medications with the patient. [place]-3 Fatty Acids (FISH OIL) 1000 MG capsule Take 1 (one) capsule by mouth as directed Active calcium carbonate (CALTRATE) 600 MG tablet Take 1 (one) tablet by mouth daily with food Active Turmeric 500 MG Take 1 tablet by mouth as directed Active Multiple Vitamin (MULTI-VITAMIN DAILY PO) Take 1 tablet by mouth as directed Active Probiotic Product (PROBIOTIC DAILY PO) Take 1 tablet by mouth as directed Active Ascorbic Acid (Vitamin C) 100 MG Take 1 tablet by mouth as directed Active fluticasone propionate (Flonase) 50 MCG/ACT nasal spray SHAKE LIQUID AND USE 2 SPRAYS IN EACH NOSTRIL TWICE DAILY NEEDED 5 Active folic acid (Folvite) 1 MG tablet Take 1 (one) tablet by mouth once daily Active methotrexate 2.5 MG tablet Take 6 tablets every week by oral route as directed for 90 days. 5 Active diclofenac sodium EC (VOLTAREN) 75 MG tablet Take 1 (one) tablet by mouth 2 times daily 10/20/19 Discontinu ed(List Clean-Up) diazePAM (Valium) 2 MG tablet Take 1 (one) tablet by mouth as needed (1 hr before MRI procedure. can repeat once if needed) 2 tablet 3 10/20/19 Discontinu ed(List Clean-Up) HYDROcodone-acet aminophen ([place]) 5-325 MG tabletIndication s:Painful orthopaedic hardware Take 1 (one) tablet by mouth every 6 hours as needed for Pain 30 tablet 3 10/20/19 Discontinu ed(List Clean-Up) aspirin (Aspirin) 325 MG tablet Take 1 (one) tablet by mouth once daily 30 tablet 3 10/20/19 Discontinu ed(List Clean-Up) docusate sodium (Colace) 100 MG capsule Take 1 (one) capsule by mouth 2 times daily 60 capsule 3 10/20/19 Discontinu ed(List Clean-Up) triamcinolone acetonide (Kenalog) 0.1 % cream APPLY TO CHEST AND ARMS TWICE DAILY FOR 10 DAYS THEN HOLD 3 10/20/19 Discontinu ed(List Clean-Up) Active Problems Problem Noted Date Diagnosed Date Lymphadenopathy 09/12/2021 Resolved Problems Problem Noted Date Diagnosed Date Resolved Date Otitis externa 12/26/2018 10/24/2021 Encounters Date Type Department Care Team Description 10/19/2024 11:20 AM CDT - 10/19/2024 11:59 PM T Hospital Encounter [facility] OP DRAW STATION [address] [place] [address] Discharge Disposition: Home or Self Care 10/19/2024 10:00 AM CDT Office Visit [facility] - Rheumatology [address] [facility], [place] [address] Catracho Guevara MD Positive GUMARO (antinuclear antibody) (Primary Dx); Encounter for screening for other viral diseases; Periodic fever syndromes (HCC) 10/19/2024 Travel from Last 3 Months Family History Medical History Relation Name Comments CAD (Coronary Artery Disease) Brother CAD (Coronary Artery Disease) Mother Relation Name Status Comments Brother Mother Social History Tobacco Use Types Packs/Day Years Used Date Smoking Tobacco: Never Smokeless Tobacco: Never Tobacco Cessation:Counseling Given: Not Answered Alcohol Use Standard Drinks/Week Comments Yes 0 (1 standard drink = 0.6 oz pur e alcohol) couple a week AUDIT-C Answer Date Recorded Q1: How often do you have a drink containing alc ohol? Patient declined 09/17/2021 Q2: How many drinks containi ng alcohol do you have on a typical day when you are drinking? Patient declined 09/17/2021 Q3: How often do you have si x or more drinks on one occasion? 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[employer] Gender Identity Not on file Sexual Orientation Not on file Last Filed Vital Signs Vital Sign Reading Time Taken Comments Blood Pressure 130/80 10/19/2024 9:53 AM CDT Pulse 83 10/19/2024 9:53 AM CDT Temperature 36.3 C (97.3 F) 10/19/2024 9:53 AM CDT Respiratory Rate 16 02/16/2023 11:06 AM CDT Oxygen Saturation 100% 09/22/2022 12:02 PM CDT Inhaled Oxygen Concentration - - Weight 53.7 kg (118 lb 6.4 oz) 10/19/2024 9:53 A M CDT Height 169.4 cm (5' 6.7 ) 10/19/2024 9:53 AM CDT Body Mass Index 18.71 10/19/2024 9:53 AM CDT Plan of Treatment Upcoming Encounters Date Type Department Care Team (Late st Contact Info) Description 12/11/2024 2:00 PM CDT Office Visit [facility] - Rheumatology [address] [place] [address], [place] [phone] Abbey Warner MD [address] [place] [address] [place] [phone] Health Maintenance Due Date Last Done Comments COLOGUARD (AGES 45-75) - COLON CA SCREENING 1956 COLON MONITORING 1956 COLONOSCOPY - COLON CA SCREENING 1956 CT COLONOGRAPHY - COLON CA SCREENING 1955 Colorectal Cancer Screening 1956 FIT - COLON CA SCREENING 1956 FLEX SIG - COLON CA SCREENING 1956 LIPID TESTING 1956 MEDICARE AWV 12 MONTHS 1956 DTAP/TDAP/TD VACCINES (1 - Tdap) 02/25/1975 PNEUMOCOCCAL VACCINE 50+ (1 of 1 - PCV) 02/25/2006 ZOSTER VACCINE (1 of 2) 02/25/2006 COVID-19 VACCINE (4 - season) 2024 05/26/2021, 10/22/2020, 10/01/2020 DEPRESSION SCREENING 07/05/2024 10/09/2022 INFLUENZA VACCINE (Season Ended) 2025 04/06/2022, 04/10/2021, 04/29/2020, Additional history exists MAMMOGRAM 09/13/2026 09/13/2024, 09/02, 07/30/2023, Additional history exists Respiratory Syncytial Virus (RSV) Vaccine Pt: or over 60 yrs (1 - 1-dose 75+ series) 02/25/2031 BONE DENSITY TESTING Completed 09/13/2024, 09/04/2022, 09/04/2022, Additional history exists HEPATITIS C SCREENING Completed 10/19/2024 HEPATITIS B VACCINE Aged Out No longe r eligible based on patient's age to complete this topic HIB VACCINE Aged Out No longer eligi ble based on patient's age to complete this topic HPV VACCINE Aged Out No longer eligi ble based on patient's age to complete this topic MENINGOCOCCAL (Group B) VACCINE SHARED DECISION-MAKING Aged Out No longer eligible based on patient's age to complete this topic MENINGOCOCCAL GROUPS A/C/Y/W VACCINE Aged Out No longer eligible based on patient's age to complete this topic Medical Devices Implanted Type Area Client Relationship Consultant Device Identifier Shelf Expiration Date Model / Serial / Lot Cannulated Screw, 5.5 Mm X 50 Mm Full Thread Implanted:Qty: 1 on 09/17/2021 by Carlos Howell MD at [facility] Right: [employer] [id number] / / Description:Vendor Tray Cannulated Screw, 3.5 Mm X 60 Mm Full Thread Implanted:Qty: 1 on 09/17/2021 by Carlos Howell MD at [facility] Right: [employer] [id number] / / Description:Vendor Tray Cannulated Screw, 3.5 Mm X 65 Mm Full Thread Implanted:Qty: 1 on 09/17/2021 by Carlos Howell MD at [facility] Right: [employer] [id number] / / Description:Vendor tray Cannulated Screw, 4.0 Mm X 46mm 1/3 Thread Implanted:Qty: 1 on 09/17/2021 by Carlos Howell MD at [facility] Right: [employer] [id number] / / Description:Vendor Tray Explanted Type Area Client Relationship Consultant Device Identifier Shelf Expiration Date Model / Serial / Lot Pin Explanted:Qty: 1 on 09/17/2021 at [facility] Right: [employer] [id number] / / Pin Explanted:Qty: 1 on 09/17/2021 at [facility] Right: [employer] [id number] / / Procedures Procedure Name Priority Date/Time Associated Diagnosis Comments PROTEIN CREATININE RATIO URINE RANDOM PNL Routine 10/19/2024 12:51 PM CDT Positive GUMARO (antinuclear antibody) URINALYSIS W/MICROSCOPIC REFLEX TO CULTURE Routine 10/19/2024 12:51 PM CDT Positive GUMARO (antinuclear antibody) Periodic fever syndromes (HCC) GUMARO BLOOD SINGLE PATTERN Routine 10/19/2024 12:42 PM CDT Positive GUMARO (antinuclear antibody) GUMARO BLOOD SINGLE PATTERN Routine 10/19/2024 12:42 PM CDT Positive GUMARO (antinuclear antibody) GUMARO BLOOD SINGLE PATTERN Routine 10/19/2024 12:42 PM CDT Positive GUMARO (antinuclear antibody) GUMARO HEP-2 IGG BY IFA Routine 10/19/2024 12:42 PM CDT Positive GUMARO (antinuclear antibody) DNA ANTIBODY DS CRITHIDIA TITER Routine 10/19/2024 12:42 PM CDT Positive GUMARO (antinuclear antibody) ROWELL/BIOFUELS PRODUCT DEVELOPMENT MANAGER (POP) ANTIBODY IGG Routine 10/19/2024 12:42 PM CDT Positive GUMARO (antinuclear antibody) SS-A (SJOGREN'S) 52+60 ANTIBODIES Routine 10/19/2024 12:42 PM CDT Positive GUMARO (antinuclear antibody) HEPATITIS C ANTIBODY Routine 10/19/2024 12:42 PM CDT Positive GUMARO (antinuclear antibody) MYOSITIS ANTIBODY PANEL COMPREHENSIVE Routine 10/19/2024 12:42 PM CDT Positive GUMARO (antinuclear antibody) CK BLOOD Routine 10/19/2024 12:42 PM CDT Positive GUMARO (antinuclear antibody) ALDOLASE Routine 10/19/2024 12:42 PM CDT Positive GUMARO (antinuclear antibody) COMPLEMENT C3 Routine 10/19/2024 12:42 PM CDT Positive GUMARO (antinuclear antibody) COMPLEMENT C4 Routine 10/19/2024 12:42 PM CDT Positive GUMARO (antinuclear antibody) FIBRILLARIN (U3 BIOFUELS PRODUCT DEVELOPMENT MANAGER) Routine 10/19/2024 12:42 PM CDT Positive GUMARO (antinuclear antibody) SS-B (SJOGREN'S) ANTIBODY Routine 10/19/2024 12:42 PM CDT Positive GUMARO (antinuclear antibody) RNA POLYMERASE III ANTIBODY IGG Routine 10/19/2024 12:42 PM CDT Positive GUMARO (antinuclear antibody) SCLERODERMA 70 (SCL) ANTIBODY Routine 10/19/2024 12:42 PM CDT Positive GUMARO (antinuclear antibody) ROWELL (SM) ANTIBODY POP Routine 10/19/2024 12:42 PM CDT Positive GUMARO (antinuclear antibody) DNA ANTIBODY DOUBLE STRANDED Routine 10/19/2024 12:42 PM CDT Positive GUMARO (antinuclear antibody) CHROMATIN ANTIBODY Routine 10/19/2024 12 :42 PM CDT Positive GUMARO (antinuclear antibody) CENTROMERE ANTIBODY Routine 10/19/2024 1 2:42 PM CDT Positive GUMARO (antinuclear antibody) GUMARO BLOOD SCREEN W/REFLEX TITER Routine 10/19/2024 12:42 PM CDT Positive GUMARO (antinuclear antibody) GUMARO HEP-2 IGG BY IFA Routine 10/19/2024 12:42 PM CDT Positive GUMARO (antinuclear antibody) RHEUMATOID FACTOR BLOOD QUANTITATIVE Routine 10/19/2024 12:42 PM CDT Positive GUMARO (antinuclear antibody) CYCLIC CITRULLINATED PEPTIDE(CCP) AB IGG Routine 10/19/2024 12:42 PM CDT Positive GUMARO (antinuclear antibody) QUANTIFERON-TB GOLD PLUS 4-TUBE Routine 10/19/2024 12:42 PM CDT Positive GUMARO (antinuclear antibody) HEPATITIS B SURFACE ANTIBODY QUANT Routine 10/19/2024 12:42 PM CDT Positive GUMARO (antinuclear antibody) HEPATITIS B CORE ANTIBODY TOTAL Routine 10/19/2024 12:42 PM CDT Positive GUMARO (antinuclear antibody) Encounter for screening for other viral diseases HEPATITIS B SURFACE ANTIGEN W RFLX CONFIRMATION Routine 10/19/2024 12:42 PM CDT Positive GUMARO (antinuclear antibody) Encounter for screening for other viral diseases ERYTHROCYTE SEDIMENTATION RATE Routine 10/19/2024 12:42 PM CDT Positive GUMARO (antinuclear antibody) C-REACTIVE PROTEIN Routine 10/19/2024 12 :42 PM CDT Positive GUMARO (antinuclear antibody) COMPREHENSIVE METABOLIC PANEL Routine 10/19/2024 12:42 PM CDT Positive GUMARO (antinuclear antibody) CBC W AUTO DIFFERENTIAL Routine 10/19/2024 12:42 PM CDT Positive GUMARO (antinuclear antibody) from Last 3 Months Results * (ABNORMAL) URINALYSIS W/MICROSCOPIC REFLEX TO CULTURE (10/19/2024 12:51 PM CDT) Color UA Yellow Yellow, Straw 10/19/2024 1:22 PM CDT [facility] Clarity UA Turbid(A) Clear 10/19/2024 1:22 PM CDT [facility] Glucose UA Normal Normal 10/19/2024 1:22 PM CDT [facility] Bilirubin UA Negative Negative 10/19/2024 1:22 PM CDT [facility] Ketone UA Negative Negative 10/19/2024 1:22 PM CDT [facility] Specific [place] UA 1.012 1.005 - 1.030 10/19/2024 1:22 PM CDT [facility] Blood UA Negative Negative 10/19/2024 1:22 PM CDT [facility] pH UA 7.0 5.0 - 9.0 pH 10/19/2024 1:22 PM CDT [facility] Protein UA Negative Negative 10/19/2024 1:22 PM CDT [facility] Urobilinogen UA Normal Normal mg/dL 10/19/2024 1:22 PM CDT [facility] Nitrite UA Negative Negative 10/19/2024 1:22 PM [facility] Leukocyte UA Negative Negative 10/19/2024 1:22 PM [facility] RBC UA 0-2 0 - 5 # /hpf 10/19/2024 1:22 PM [facility] WBC UA 0-5 0 - 5 # /hpf 10/19/2024 1:22 PM [facility] Bacteria UA None Seen None Seen 10/19/2024 1:22 PM [facility] Squamous Epithelial Cells 0-2 0 - 5 /hpf 10/19/2024 1:22 PM [facility] Mucus UA 1+ /LPF 10/19/2024 1:22 PM [facility] Amorphous Crystals Moderate(A) None seen /hpf 10/19/2024 1:22 PM [facility] Urine URINE SPECIMEN OBTAINED BY CLEAN CATCH PROCEDURE / Unknown Collection / Unknown 10/19/2024 12:51 PM CDT 10/19/2024 1:08 PM CDT us Catracho Guevara MD LAB - URINALYSIS ORDERABLES Tierney l Result [facility] [address] [id number], [facility] [phone] * PROTEIN CREATININE RATIO URINE RANDOM PNL (10/19/2024 12:51 PM CDT) Protein Urine <7 Not Established mg/dL 10/19/2024 1:46 PM [facility] Creatinine Urine 44.55 Not Established mg/dL 10/19/2024 1:46 PM [facility] Protein/Creatinin e Ratio Urine 10/19/2024 1:46 PM [facility] Comment:Unable to calculate ratio because the analyte concentration is outside the instrument measuring range. Urine URINE SPECIMEN OBTAINED BY CLEAN CATCH PROCEDURE / Unknown Collection / Unknown 10/19/2024 12:51 PM CDT 10/19/2024 1:08 PM CDT us Catracho Guevara MD LAB - URINE CHEMISTRY ORDERABLES Final Result [facility] [address] [place] [address], [facility] [phone] * (ABNORMAL) GUMARO BLOOD SINGLE PATTERN (10/19/2024 12:42 PM CDT) Only the most recent of3 resultswithin the time period is included. Pathologist [facility] GUMARO Pattern Speckled( A) 10/22/2024 5:46 AM CDT [facility] ([facility]) GUMARO Titer 1:320(A) 10/22/2024 5:46 AM CDT [facility] ([facility]) Comment: Performed By: [facility] [address] [place] [address] Forensic Social Worker: Stanislav Loredo MD, PhD CLIA Number: [id number] Blood BLOOD SPECIMEN / Unknown Lab Venipuncture / Unknown 10/19/2024 12:42 PM CDT 10/19/2024 12:51 PM CDT Catracho Guevara MD LAB - CHEMISTRY ORDERABLES Final Result Performing Organization Address [facility] Co de Phone Number [facility] ([facility]) [address] * (ABNORMAL) GUMARO HEP-2 IGG BY IFA (10/19/2024 12:42 PM CDT) Only the most recent of2 resultswithin the time period is included. Pathologist [facility] GUMARO HEp-2 IgG Detected (H) <1:80 10/22/2024 5:46 AM CDT [facility] ([facility]) GUMARO Interpretive Comment See Note 10/22/2024 5:46 AM CDT [facility] ([facility]) Comment: Speckled Pattern Clinical associations: SLE, SSc, SjS, DM, PM, MCTD, UCTD. May also be found in healthy individuals Main autoantibodies: Anti-SSA-52 (Ro52), anti-SSA-60 (Ro60), anti-SS-B/LA, anti-Moreno-1 (anti-Scl-70), Rowell, anti-U1-BIOFUELS PRODUCT DEVELOPMENT MANAGER, anti-U2-BIOFUELS PRODUCT DEVELOPMENT MANAGER, anti-Mi-2, anti-p155/140 (TIF1g), anti-Ku, anti-RNA polymerase, anti-DFS70/LEDGF-P75 List of Abbreviations Antimitochondrial antibodies (AMA), Antisynthetase syndrome (ARS), chronic active hepatitis (CAH), inflammatory myopathies (IM) [dermatomyositis (DM), polymyositis (PM), necrotizing autoimmune myopathy (NAM)', interstitial lung disease (ILD), juvenile idiopathic arthritis (ANA), mixed connective tissue disease (MCTD), primary biliary cholangitis (PBC), rheumatoid arthritis (RA), systemic autoimmune rheumatic diseases (SARD), Sjogren syndrome (SjS), systemic lupus erythematosus (SLE), systemic sclerosis (SSc), undifferentiated connective tissue disease (UCTD). INTERPRETIVE INFORMATION: GUMARO Interpretive Comment Presence of antinuclear antibodies (GUMARO) is a hallmark feature of systemic autoimmune rheumatic diseases (SARD). However, GUMARO lacks diagnostic specificity and is associated with a variety of diseases (cancers, autoimmune, infectious, and inflammatory conditions) and may also occur in healthy individuals in varying prevalence. The lack of diagnostic specificity requires confirmation of positive GUMARO by more specific serologic tests. GUMARO (nuclear reactivity) positive patterns reported include centromere, homogeneous, nuclear dots, nucleolar, or speckled. GUMARO (cytoplasmic reactivity) positive patterns reported include reticular/AMA, discrete/GW body-like, polar/golgi-like, cytoplasmic speckled or rods and rings. All positive patterns are reported to endpoint titers (1:2560). Reported patterns may help guide differential diagnosis, although they may not be specific for individual antibodies or diseases. Mitotic staining patterns not reported. Negative results do not necessarily rule out SARD. Performed By: [facility] [address] [place] [address] Forensic Social Worker: Stanislav Loredo MD, PhD CLIA Number: [id number] Blood BLOOD SPECIMEN / Unknown Lab Venipuncture / Unknown 10/19/2024 12:42 PM CDT 10/19/2024 12:51 PM CDT us Catracho Guevara MD LAB - SEROLOGY ORDERABLES Final Result [facility] ([facility]) [address] [place] [address], [facility] * (ABNORMAL) SS-A (SJOGREN'S) 52+60 ANTIBODIES (10/19/2024 12:42 PM CDT) SS-A 52 Antibody 200(H) 0 - 40 AU/mL 10/21/2024 10:13 AM CDT [facility] ([facility]) Comment: INTERPRETIVE INFORMATION: SSA-52 (Ro52) (POP) Antibody, IgG 29 AU/mL or Less ............. Negative 30 - 40 AU/mL ................ Equivocal 41 AU/mL or Greater .......... Positive SSA-52 (Ro52) and/or SSA-60 (Ro60) antibodies are associated with a diagnosis of Sjogren syndrome, systemic lupus erythematosus (SLE), and systemic sclerosis. SSA-52 antibody overlaps significantly with the major SSc-related antibodies. SSA-52 (Ro52) antibody occurs frequently in patients with inflammatory myopathies, often in the presence of interstitial lung disease. SS-A 60 Antibody 150(H) 0 - 40 AU/mL 10/21/2024 10:13 AM CDT [facility] ([facility]) Comment: REFERENCE INTERVAL: SSA-60 (Ro60) (POP) Antibody, IgG 29 AU/mL or Less ............. Negative 30 - 40 AU/mL ................ Equivocal 41 AU/mL or Greater .......... Positive Performed By: [facility] [address] [place] [address] Forensic Social Worker: Stanislav Loredo MD, PhD CLIA Number: [id number] Blood BLOOD SPECIMEN / Unknown Lab Venipuncture / Unknown 10/19/2024 12:42 PM CDT 10/19/2024 12:51 PM CDT Catracho Guevara MD LAB - CHEMISTRY ORDERABLES Final Result [facility] ([facility]) [address] [place] [address], [facility] * ROWELL/BIOFUELS PRODUCT DEVELOPMENT MANAGER (POP) ANTIBODY IGG (10/19/2024 12:42 PM CDT) Pathologist [facility] Rowell/BIOFUELS PRODUCT DEVELOPMENT MANAGER (POP) Antibody IgG 6 0 - 19 Units 10/21/2024 10:50 AM CDT [facility]) Comment: INTERPRETIVE INFORMATION: Rowell/BIOFUELS PRODUCT DEVELOPMENT MANAGER (POP) Antibody, IgG 19 Units or Less ............. Negative 20 to 39 Units ............... Weak Positive 40 to 80 Units ............... Moderate Positive 81 Units or greater .......... Strong Positive Rowell/BIOFUELS PRODUCT DEVELOPMENT MANAGER antibodies are frequently seen in patients with mixed connective tissue disease (MCTD) and are also associated with other systemic autoimmune rheumatic diseases (SARDs) such as systemic lupus erythematosus (SLE), systemic sclerosis, and myositis. Antibodies targeting the Rowell/BIOFUELS PRODUCT DEVELOPMENT MANAGER antigenic complex also recognize Rowell antigens, therefore, the Rowell antibody response must be considered when interpreting these results. Performed By: [id number] [address] [place] [address] Forensic Social Worker: Stanislav Loredo MD, PhD CLIA Number: [id number] Blood BLOOD SPECIMEN / Unknown Lab Venipuncture / Unknown 10/19/2024 12:42 PM CDT 10/19/2024 12:51 PM CDT Catracho Guevara MD LAB - CHEMISTRY ORDERABLES Final Result [facility]) [address] [place] [id number] * QUANTIFERON-TB GOLD PLUS 4-TUBE (10/19/2024 12:42 PM CDT) [facility] QuantiFERON Mitogen Minus NIL 9.81 IU/mL 10/22/2024 3:16 AM CDT [facility]) QuantiFERON Nil Value 0.20 IU/mL 10/22/2024 3:16 AM CDT [facility]) QuantiFERON Plus TB1 Minus NIL 0.04 <=0.34 IU/mL 10/22/2024 3:16 AM CDT [facility]) QuantiFERON Plus TB2 Minus NIL 0.04 <=0.34 IU/mL 10/22/2024 3:16 AM CDT [employer] [facility] ([facility]) QuantiFERON-TB Gold Plus Negative Negative 10/22/2024 3:16 AM CDT [facility] ([facility]) Comment: INTERPRETIVE INFORMATION:Quantiferon TB Gold Plus Interferon gamma release is measured for specimens from each of the four collection tubes. A qualitative result (Negative, Positive, or Indeterminate) is based on interpretation of the four values: NIL, MITOGEN minus NIL (MITOGEN-NIL), TB1 minus NIL (TB1-NIL), and TB2 minus NIL (TB2-NIL). The NIL value represents nonspecific reactivity produced by the patient specimen. The MITOGEN-NIL value serves as the positive control for the patient specimen, demonstrating successful lymphocyte activity. The TB1-NIL tube specifically detects CD4+ lymphocyte reactivity, specifically stimulated by the TB1 antigens. The TB2-NIL tube detects both CD4+ and CD8+ lymphocyte reactivity, stimulated by TB2 antigens. An overall Negative result does not completely rule out TB infection. A false-positive result in the absence of other clinical evidence of TB infection is not uncommon. Refer to: Updated Guidelines for Using Interferon Gamma Release Assays to Detect Mycobacterium tuberculosis Infection -- [place], 2010 (http://www.cdc.gov/mmwr/preview/mmwrhtml/vi3437j4.htm), for more information concerning test performance in low-prevalence populations and use in occupational screening. Performed By: [facility] [address] [place] [address] Forensic Social Worker: Stanislav Loredo MD, PhD CLIA Number: [id number] Blood BLOOD SPECIMEN / Unknown Lab Venipuncture / Unknown 10/19/2024 12:42 PM CDT 10/19/2024 12:51 PM CDT Catracho Guevara MD LAB - CHEMISTRY ORDERABLES Final Result [facility] ([facility]) [address] [place] [address] * CHROMATIN ANTIBODY (10/19/2024 12:42 PM CDT) [facility] Chromatin Antibody 8 0 - 19 Units 10/23/2024 1:43 AM CDT [facility] ([facility]) Comment: INTERPRETIVE INFORMATION: Chromatin Antibody, IgG 19 Units or less: Negative 20 - 60 Units: Moderate Positive 61 Units or greater: Strong Positive The presence of anti-chromatin antibodies may be useful in the diagnosis of systemic lupus erythematosus (SLE) or drug-induced lupus (DIL) and have been reported to be predictive of lupus nephritis, especially when antibody levels are high. Performed By: [address] [address] Forensic Social Worker: Stanislav Loredo MD, PhD CLIA Number: [id number] Blood BLOOD SPECIMEN / Unknown Lab Venipuncture / Unknown 10/19/2024 12:42 PM CDT 10/19/2024 12:50 PM CDT Catracho Guevara MD LAB - SEROLOGY ORDERABLES Final Result [facility]) [address] [place] [address] * (ABNORMAL) MYOSITIS ANTIBODY PANEL COMPREHENSIVE (10/19/2024 12:42 PM CDT) SAE1 (SUMO activating enzyme) Ab Negative Negative 10/25/2024 8:54 PM CDT [facility]) NXP2 (Nuclear matrix protein-2) Ab Negative Negative 10/25/2024 8:54 PM CDT [facility]) MDA5 (CADM-140) Ab Negative Negative 2024 8:54 PM CDT [facility]) TIF-1 gamma (155 kDa) Ab Negative Negative 10/25/2024 8:54 PM CDT [facility]) Myositis Panel Interpretive Data See Note 10/25/2024 8:54 PM CDT [facility] ([facility]) Comment: INTERPRETIVE INFORMATION: Extended Myositis Panel 2 If present, myositis-specific antibodies (MSAs) are specific for myositis, and may be useful in establishing diagnosis as well as prognosis. MSAs are generally regarded as mutually exclusive with rare exceptions; the occurrence of two or more MSAs should be carefully evaluated in the context of patient's clinical presentation. Myositis-associated antibodies (Anette) may be found in patients with CTD including overlap syndromes, and are generally not specific for myositis. The following table will help in identifying the association of any antibodies found as either MSAs or Anette. Antibody Specificity . . . . . . . . . . . . MSAs . . . . Anette SSA 52 (Ro) (POP) Antibody IgG . . . . . . . X SSA 60 (Ro) (POP) Antibody IgG . . . . . . . X Rowell/BIOFUELS PRODUCT DEVELOPMENT MANAGER (POP) Ab, IgG . . . . . . . . . . X Sheela-1 (histidyl-tRNA synthetase) Ab, IgG . . X PL-12 (alanyl-tRNA synthetase) Antibody . . X PL-7 (threonyl-tRNA synthetase) Antibody . . X EJ (glycyl-tRNA synthetase) Antibody . . . . X OJ (isoleucyl-tRNA synthetase) Antibody . . X SRP (Signal Recognition Particle) Ab . . . . X Ku Antibody . . . . . . . . . . . . . . . . . . . . . . X PM/SCL 100 Antibody, IgG . . . . . . . . . . . . . . . . X Fibrillarin (U3 BIOFUELS PRODUCT DEVELOPMENT MANAGER) Ab, IgG . . . . . . . . . . . . . . X Mi-2 (nuclear helicase protein) Antibody . . X P155/140 Antibody . . . . . . . . . . . . . X TIF-1 gamma (155 kDa) Ab . . . . . . . . . . X SAE1 (SUMO activating enzyme) Ab . . . . . . X MDA5 (CADM-140) Ab . . . . . . . . . . . . X NXP2 (Nuclear matrix proten-2)Ab . . . . . . X Nunez (tyrosyl-tRNA synthetase) Ab. . . . . . . X Ks (asparaginyl-tRNA synthetase) Ab . . . . X Zo (phenylalanyl-tRNA synthetase) Ab . . . . X HMGCR (9-Selqajz-7-Methylglutaryl Coenzyme A Reductase) . . . . . . . . X This test was developed and its performance characteristics determined by [facility]. It has not been cleared or approved by the US Food and Drug Administration. This test was performed in a CLIA certified laboratory and is intended for clinical purposes. Mi-2 Antibody Negative Negative 10/25/2024 8:54 PM CDT [facility] ([facility]) P155/140 Antibody Negative Negative 025 8:54 PM CDT [facility] ([facility]) PL-12 Antibody Negative Negative 10/25/2024 8:54 PM CDT [facility] ([facility]) PL-7 Antibody Negative Negative 10/25/2024 8:54 PM CDT [facility] ([facility]) OJ Antibody Negative Negative 10/25/2024 8:54 PM CDT [facility] ([facility]) EJ Antibody Negative Negative 10/25/2024 8:54 PM CDT [facility] ([facility]) SRP Antibody Negative Negative 10/25/2024 8:54 PM CDT [facility] ([facility]) Sheela-1 Antibody IgG 0 0 - 40 AU/mL 10/25/2024 8:54 PM CDT [facility] ([facility]) Comment: INTERPRETIVE INFORMATION: Sheela-1 Antibody, IgG 29 AU/mL or less.........Negative 30-40 AU/mL..............Equivocal 41 AU/mL or greater......Positive Presence of Sheela-1 (antihistidyl transfer RNA [t-RNA' synthetase) antibody is associated with polymyositis and may also be seen in patients with dermatomyositis. Sheela-1 antibody is associated with pulmonary involvement (interstitial lung disease), Raynaud phenomenon, arthritis, and hydramatic mechanic's hands (implicated in antisynthetase syndrome). KU Antibody Negative Negative 10/25/2024 8:54 PM CDT [facility] ([facility]) Rowell/BIOFUELS PRODUCT DEVELOPMENT MANAGER (POP) Antibody IgG 7 0 - 19 Units 10/25/2024 8:54 PM CDT [facility] ([facility]) Comment: INTERPRETIVE INFORMATION: Rowell/BIOFUELS PRODUCT DEVELOPMENT MANAGER (POP) Antibody, IgG 19 Units or Less ............. Negative 20 to 39 Units ............... Weak Positive 40 to 80 Units ............... Moderate Positive 81 Units or greater .......... Strong Positive Rowell/BIOFUELS PRODUCT DEVELOPMENT MANAGER antibodies are frequently seen in patients with mixed connective tissue disease (MCTD) and are also associated with other systemic autoimmune rheumatic diseases (SARDs) such as systemic lupus erythematosus (SLE), systemic sclerosis, and myositis. Antibodies targeting the Rowell/BIOFUELS PRODUCT DEVELOPMENT MANAGER antigenic complex also recognize Rowell antigens, therefore, the Rowell antibody response must be considered when interpreting these results. PM/Scl 100 Antibody IgG Negative Negative 10/25/2024 8:54 PM T [facility] ([facility]) Comment: INTERPRETIVE INFORMATION: PM/Scl-100 Antibody, IgG by Immunoblot The presence of PM/Scl-100 IgG antibody along with a positive GUMARO IFA nucleolar pattern is associated with connective tissue diseases such as polymyositis (PM), dermatomyositis (DM), systemic sclerosis (SSc), and polymyositis/systemic sclerosis overlap syndrome. The clinical relevance of PM/Scl-100 IgG antibody with a negative GUMARO IFA nucleolar pattern is unknown. PM/Scl-100 is the main target epitope of the PM/Scl complex, although antibodies to other targets not detected by this assay may occur. This test was developed and its performance characteristics determined by [facility]. It has not been cleared or approved by the US Food and Drug Administration. This test was performed in a CLIA certified laboratory and is intended for clinical purposes. SS-A 52 Antibody 187(H) 0 - 40 AU/mL 10/25/2024 8:54 PM [facility] ([facility]) Comment: INTERPRETIVE INFORMATION: SSA-52 (Ro52) (POP) Antibody, IgG 29 AU/mL or Less ............. Negative 30 - 40 AU/mL ................ Equivocal 41 AU/mL or Greater .......... Positive SSA-52 (Ro52) and/or SSA-60 (Ro60) antibodies are associated with a diagnosis of Sjogren syndrome, systemic lupus erythematosus (SLE), and systemic sclerosis. SSA-52 antibody overlaps significantly with the major SSc-related antibodies. SSA-52 (Ro52) antibody occurs frequently in patients with inflammatory myopathies, often in the presence of interstitial lung disease. SS-A 60 Antibody 147(H) 0 - 40 AU/mL 10/25/2024 8:54 PM [facility] ([facility]) Comment: REFERENCE INTERVAL: SSA-60 (Ro60) (POP) Antibody, IgG 29 AU/mL or Less ............. Negative 30 - 40 AU/mL ................ Equivocal 41 AU/mL or Greater .......... Positive Fibrillarin (U3 BIOFUELS PRODUCT DEVELOPMENT MANAGER) Antibody IgG Negative Negative 10/25/2024 8:54 PM CDT [facility] ([facility]) Comment: Interpretive Information: Fibrillarin (U3 BIOFUELS PRODUCT DEVELOPMENT MANAGER) Antibody, IgG The presence of fibrillarin (U3-BIOFUELS PRODUCT DEVELOPMENT MANAGER) IgG antibodies in association with an GUMARO IFA nucleolar pattern is suggestive of systemic sclerosis (SSc). In SSc, these antibodies are associated with distinct clinical features, such as younger age at disease onset, frequent internal organ involvement (pulmonary hypertension, myositis and renal disease). Fibrillarin antibodies are detected more frequently in patients with SSc compared to other ethnic groups. Strong correlation with GUMARO IFA results is recommended. In a multi-ethnic cohort of SSc patients (n=98), U3-BIOFUELS PRODUCT DEVELOPMENT MANAGER antibodies detected by immunoblot had an agreement of 98.9 percent with the gold standard immunoprecipitation (IP) assay. Approximately 71 percent (5/7) of the borderline U3-BIOFUELS PRODUCT DEVELOPMENT MANAGER results with GUMARO nucleolar pattern in this cohort were IP negative. This test was developed and its performance characteristics determined by [facility]. It has not been cleared or approved by the US Food and Drug Administration. This test was performed in a CLIA certified laboratory and is intended for clinical purposes. GUMARO HEp-2 IgG Detected(H ) <1:80 10/25/2024 8:54 PM CDT [facility] ([facility]) GUMARO Interpretive Comment See Note 10/25/2024 8:54 PM CDT [facility] ([facility]) Comment: Speckled Pattern Clinical associations: SLE, SSc, SjS, DM, PM, MCTD, UCTD. May also be found in healthy individuals Main autoantibodies: Anti-SSA-52 (Ro52), anti-SSA-60 (Ro60), anti-SS-B/LA, anti-Moreno-1 (anti-Scl-70), Rowell, anti-U1-BIOFUELS PRODUCT DEVELOPMENT MANAGER, anti-U2-BIOFUELS PRODUCT DEVELOPMENT MANAGER, anti-Mi-2, anti-p155/140 (TIF1g), anti-Ku, anti-RNA polymerase, anti-DFS70/LEDGF-P75 List of Abbreviations Antimitochondrial antibodies (AMA), Antisynthetase syndrome (ARS), chronic active hepatitis (CAH), inflammatory myopathies (IM) [dermatomyositis (DM), polymyositis (PM), necrotizing autoimmune myopathy (NAM)', interstitial lung disease (ILD), juvenile idiopathic arthritis (ANA), mixed connective tissue disease (MCTD), primary biliary cholangitis (PBC), rheumatoid arthritis (RA), systemic autoimmune rheumatic diseases (SARD), Sjogren syndrome (SjS), systemic lupus erythematosus (SLE), systemic sclerosis (SSc), undifferentiated connective tissue disease (UCTD). INTERPRETIVE INFORMATION: GUMARO Interpretive Comment Presence of antinuclear antibodies (GUMARO) is a hallmark feature of systemic autoimmune rheumatic diseases (SARD). However, GUMARO lacks diagnostic specificity and is associated with a variety of diseases (cancers, autoimmune, infectious, and inflammatory conditions) and may also occur in healthy individuals in varying prevalence. The lack of diagnostic specificity requires confirmation of positive GUMARO by more specific serologic tests. GUMARO (nuclear reactivity) positive patterns reported include centromere, homogeneous, nuclear dots, nucleolar, or speckled. GUMARO (cytoplasmic reactivity) positive patterns reported include reticular/AMA, discrete/GW body-like, polar/golgi-like, cytoplasmic speckled or rods and rings. All positive patterns are reported to endpoint titers (1:2560). Reported patterns may help guide differential diagnosis, although they may not be specific for individual antibodies or diseases. Mitotic staining patterns not reported. Negative results do not necessarily rule out SARD. Nunez (tyrosyl-tRNA synthetase) Ab Negative Negative 10/25/2024 8:54 PM CDT [facility] ([facility]) Comment: Nunez antibody negative by line immunoassay. No band corresponding to 65 kDa observed by immunoprecipitation. Ks (asparaginyl-tRNA synthetase) Ab Negative Negative 10/25/2024 8:54 PM CDT [facility] ([facility]) Comment: Ks antibody negative by line immunoassay. No band corresponding to 65 kDa observed by immunoprecipitation. Zo (phenylalanyl-tRNA synthetase) Ab Negative Negative 10/25/2024 8:54 PM CDT [facility] ([facility]) Comment: Zo antibody negative by line immunoassay. No bands corresponding to 68 and 58 kDa observed by immunoprecipitation. Performed By: [facility] [address] [place] [address] Forensic Social Worker: Stanislav Loredo MD, PhD CLIA Number: [id number] Blood BLOOD SPECIMEN / Unknown Lab Venipuncture / Unknown 10/19/2024 12:42 PM CDT 10/19/2024 12:51 PM CDT Catracho Guevara MD LAB - CHEMISTRY ORDERABLES Final Result [facility]) [address] [place] [address], [facility] * RNA POLYMERASE III ANTIBODY IGG (10/19/2024 12:42 PM CDT) Pathologist [facility] RNA Polymerase 3 Antibody IgG 5 0 - 19 Units 10/21/2024 5:27 PM CDT [facility] ([facility]) Comment: INTERPRETIVE INFORMATION: RNA Polymerase III Antibody, IgG 19 Units or less ......Negative 20 - 39 Units .........Weak Positive 40 - 80 Units .........Moderate Positive 81 Units or greater ...Strong Positive The presence of RNA polymerase III IgG antibody, when considered in conjunction with other laboratory and clinical findings, is an aid in the diagnosis of systemic sclerosis (SSc) with increased incidence of skin involvement and renal crisis with the diffuse cutaneous form of SSc. RNA polymerase III IgG antibody occur in about 11-23 percent of SSc patients, and typically in the absence of anti-centromere and anti-Scl-70 antibodies. A negative result indicates no detectable IgG antibodies to the dominant antigen of RNA polymerase III and does not rule out the possibility of SSc. False-positive results may also occur due to non-specific binding of immune complexes. Strong clinical correlation is recommended. If clinical suspicion remains, consider additional testing for other antibodies associated with SSc, including centromere, Scl-70, U3-BIOFUELS PRODUCT DEVELOPMENT MANAGER, PM/Scl, or Th/To. Performed By: [facility] [address] [place] [address] Forensic Social Worker: Stanislav Loredo MD, PhD CLIA Number: [id number] Blood BLOOD SPECIMEN / Unknown Lab Venipuncture / Unknown 10/19/2024 12:42 PM CDT 10/19/2024 12:50 PM CDT us Catracho Guevara MD LAB - SEROLOGY ORDERABLES Final Result Performing Organization Address [facility] Co de Phone Number [facility]) [address] * FIBRILLARIN (U3 BIOFUELS PRODUCT DEVELOPMENT MANAGER) (10/19/2024 12:42 PM CDT) Fibrillarin (U3 BIOFUELS PRODUCT DEVELOPMENT MANAGER) Antibody IgG Negative Negative 10/22/2024 12:57 PM CDT [facility] ([facility]) Comment: Interpretive Information: Fibrillarin (U3 BIOFUELS PRODUCT DEVELOPMENT MANAGER) Antibody, IgG The presence of fibrillarin (U3-BIOFUELS PRODUCT DEVELOPMENT MANAGER) IgG antibodies in association with an GUMARO IFA nucleolar pattern is suggestive of systemic sclerosis (SSc). In SSc, these antibodies are associated with distinct clinical features, such as younger age at disease onset, frequent internal organ involvement (pulmonary hypertension, myositis and renal disease). Fibrillarin antibodies are detected more frequently in patients with SSc compared to other ethnic groups. Strong correlation with GUMARO IFA results is recommended. In a multi-ethnic cohort of SSc patients (n=98), U3-BIOFUELS PRODUCT DEVELOPMENT MANAGER antibodies detected by immunoblot had an agreement of 98.9 percent with the gold standard immunoprecipitation (IP) assay. Approximately 71 percent (5/7) of the borderline U3-BIOFUELS PRODUCT DEVELOPMENT MANAGER results with GUMARO nucleolar pattern in this cohort were IP negative. This test was developed and its performance characteristics determined by [facility]. It has not been cleared or approved by the [place] Food and Drug Administration. This test was performed in a CLIA certified laboratory and is intended for clinical purposes. Performed By: [facility] [address] [place] [address] Forensic Social Worker: Stanislav Loredo MD, PhD CLIA Number: [id number] Blood BLOOD SPECIMEN / Unknown Lab Venipuncture / Unknown 10/19/2024 12:42 PM CDT 10/19/2024 12:51 PM CDT us Catracho Guevara MD LAB - CHEMISTRY ORDERABLES Final Result Performing Organization Address City/[facility] Co de Phone Number [facility] ([facility]) [address] * DNA ANTIBODY DS CRITHIDIA TITER (10/19/2024 12:42 PM CDT) Pathologist [facility] dsDNA Antibody IgG <1:10 <1:10 2024 9:33 AM CDT [facility] ([facility]) Comment: INTERPRETIVE INFORMATION: Double-Stranded DNA (dsDNA) Antibody, IgG by IFA (using Crithidia luciliae) Positivity for anti-double stranded DNA (anti-dsDNA) IgG antibody is a diagnostic criterion of systemic lupus erythematosus (SLE). The presence of the anti-dsDNA IgG antibody is identified by IFA titer (Crithidia luciliae indirect fluorescent test [CIARA'). CIARA is highly specific for SLE with a sensitivity of 50-60 percent. Some patients with early or inactive SLE may be positive for anti-dsDNA IgG by ADRIANA but negative by CIARA. If the CIARA result is negative but the patient has a positive ADRIANA and clinical suspicion remains, consider antinuclear antibody (GUMARO) testing by IFA. Additional information and recommendations for testing may be found at [email or web address]. Performed By: [email or web address] [address] [place] [address] Forensic Social Worker: Stanislav Loredo MD, PhD CLIA Number: [id number] Blood BLOOD SPECIMEN / Unknown Lab Venipuncture / Unknown 10/19/2024 12:42 PM CDT 10/19/2024 12:51 PM CDT Catracho Guevara MD LAB - SEROLOGY ORDERABLES Final Result [facility] ([facility]) [address] [place] [address] * HEPATITIS B SURFACE ANTIBODY QUANT (10/19/2024 12:42 PM CDT) [facility] Hepatitis B Virus Surface Antibody Non-react john Non-react john 10/19/2024 2:20 PM CDT [facility] Comment: < 8 mIU/mL Hepatitis B surface Antibody (HBsAb). Nonreactive for HBsAb - individual is considered not immune to Hepatitis B Virus infection. Hepatitis B Surface Antibody Quantitative <3.0 <8.0 mIU/mL 10/19/2024 2:20 PM CDT [facility] Comment: Hepatitis B Surface Antibody Numeric Result Interpretation: Nonreactive: <8.0 mIU/mL Indeterminate: 8.0 - 12.0 mIU/mL Reactive: >12.0 mIU/mL Blood BLOOD SPECIMEN / Unknown Lab Venipuncture / Unknown 10/19/2024 12:42 PM CDT 10/19/2024 12:50 PM CDT Narrative [facility] - 10/19/2024 2:20 PM CDT This assay should not be used for blood, plasma, or tissue donor screening. This assay is not recommended for neonates born to HBV-infected or suspected HBV-infected mothers. Catracho Guevara MD LAB - SEROLOGY ORDERABLES Final Result [address] [address], [facility] [phone] * ROWELL (SM) ANTIBODY POP (10/19/2024 12:42 PM CDT) [facility] Rowell (POP) Antibody 8 0 - 40 AU/mL 10/21/2024 10:13 AM CDT [facility] ([facility]) Comment: INTERPRETIVE INFORMATION: Rowell (POP) Antibody, IgG 29 AU/mL or Less ............. Negative 30 - 40 AU/mL ................ Equivocal 41 AU/mL or Greater .......... Positive Rowell antibody is highly specific (greater than 90 percent) for systemic lupus erythematosus (SLE) but only occurs in 30-35 percent of SLE cases. The presence of antibodies to Rowell has variable associations with SLE clinical manifestations. Performed By: [facility] [address] [place] [id number] Forensic Social Worker: Stanislav Loredo MD, PhD CLIA Number: [id number] Blood BLOOD SPECIMEN / Unknown Lab Venipuncture / Unknown 10/19/2024 12:42 PM CDT 10/19/2024 12:51 PM CDT us Catracho Guevara MD LAB - CHEMISTRY ORDERABLES Final Result [employer] [facility]) [address] * (ABNORMAL) RHEUMATOID FACTOR BLOOD QUANTITATIVE (10/19/2024 12:42 PM CDT) [facility] Rheumatoid Factor 64(H) <30 IU/mL 10/19/2024 1:24 PM CDT [facility] Rheumatoid Factor Screen Positive( A) Negative 10/19/2024 1:24 PM CDT [facility] Blood BLOOD SPECIMEN / Unknown Lab Venipuncture / Unknown 10/19/2024 12:42 PM CDT 10/19/2024 12:50 PM CDT us Catracho Guevara MD LAB - CHEMISTRY ORDERABLES Final Result Performing Organization Address [facility]/ZIP Co de Phone Number [address] [address], [facility] [phone] * C-REACTIVE PROTEIN (10/19/2024 12:42 PM CDT) [facility] C-Reactive Protein <0.5 <=0.5 mg/dL 10/19/2024 1:20 PM CDT [facility] Blood BLOOD SPECIMEN / Unknown Lab Venipuncture / Unknown 10/19/2024 12:42 PM CDT 10/19/2024 12:54 PM CDT us Catracho Guevara MD LAB - CHEMISTRY ORDERABLES Final Result Performing Organization Address [facility]/ZIP Co de Phone Number [address] [address], [facility] [phone] * (ABNORMAL) GUMARO BLOOD SCREEN W/REFLEX TITER (10/19/2024 12:42 PM CDT) [facility] GUAMRO IgG Detected (A) None Detected 10/21/2024 8:42 AM CDT [facility]) Comment: Antibodies to Anti-Nuclear Antibodies (GUMARO) detected. Additional testing to follow. INTERPRETIVE INFORMATION: Anti-Nuclear Antibodies (GUMARO), IgG by ADRIANA Antinuclear Antibodies (GUMARO), IgG by ADRIANA: GUMARO specimens are screened using enzyme-linked immunosorbent assay (ADRIANA) methodology. All ADRIANA results reported as Detected are further tested by indirect fluorescent assay (IFA) using HEp-2 substrate with an IgG-specific conjugate. The GUMARO ADRIANA screen is designed to detect antibodies against dsDNA, histones, SS-A (Ro), SS-B (La), Rowell, Rowell/BIOFUELS PRODUCT DEVELOPMENT MANAGER, Scl-70, Sheela-1, centromeric proteins, other antigens extracted from the HEp-2 cell nucleus. GUMARO ADRIANA assays have been reported to have lower sensitivities than GUMARO IFA for systemic autoimmune rheumatic diseases (SARD). Negative results do not necessarily rule out SARD. Performed By: [facility] [address] [place] [address] Forensic Social Worker: Stanislav Loredo MD, PhD CLIA Number: [id number] Blood BLOOD SPECIMEN / Unknown Lab Venipuncture / Unknown 10/19/2024 12:42 PM CDT 10/19/2024 12:51 PM CDT Catracho Guevara MD LAB - CHEMISTRY ORDERABLES Final Result [facility]) [address] [place] [address], [facility] * CENTROMERE ANTIBODY (10/19/2024 12:42 PM CDT) [facility] Centromere Antibody 1 0 - 40 AU/mL 10/21/2024 10:13 AM CDT [facility] ([facility]) Comment: INTERPRETIVE INFORMATION: Centromere Ab, IgG 29 AU/mL or Less ............. Negative 30 - 40 AU/mL ................ Equivocal 41 AU/mL or Greater .......... Positive When detected by this multiplex bead assay, the presence of centromere antibodies is mainly associated with CREST syndrome, a variant of systemic sclerosis (SSc). These antibodies target the centromere B, a dominant antigen of the centromeric complex associated with the centromere pattern observed in antinuclear antibody (GUMARO) testing by IFA. Centromere antibodies may also be seen in a varying percentage of patients with other autoimmune diseases, including diffuse cutaneous SSc, Raynaud syndrome, interstitial pulmonary fibrosis, autoimmune liver disease, systemic lupus erythematosus (SLE) and rheumatoid arthritis (RA). A negative result indicates no detectable IgG antibodies to centromere B. If the result is negative but clinical suspicion for SSc is strong, consider testing for GUMARO by IFA along with other antibodies associated with SSc, including Scl-70, U3-BIOFUELS PRODUCT DEVELOPMENT MANAGER, PM/Scl, or Th/To. Performed By: [facility] [address] [place] [address] Forensic Social Worker: Stanislav Loredo MD, PhD CLIA Number: [id number] Blood BLOOD SPECIMEN / Unknown Lab Venipuncture / Unknown 10/19/2024 12:42 PM CDT 10/19/2024 12:50 PM CDT Catracho Guevara MD LAB - CHEMISTRY ORDERABLES Final Result [facility]) [address] [place] [address] * SS-B (SJOGREN'S) ANTIBODY (10/19/2024 12:42 PM CDT) [facility] SS-B Antibody 9 0 - 40 AU/mL 10/21/2024 10:13 AM CDT [facility]) Comment: INTERPRETIVE INFORMATION: SSB (La) (POP) Ab, IgG 29 AU/mL or Less ............. Negative 30 - 40 AU/mL ................ Equivocal 41 AU/mL or Greater .......... Positive SSB (La) antibody is seen in 50-60% of Sjogren syndrome cases and is specific if it is the only POP antibody present. 15-25% of patients with systemic lupus erythematosus (SLE) and 5-10% of patients with progressive systemic sclerosis (PSS) also have this antibody. Performed By: [facility] [address] [place] [address] Forensic Social Worker: Stanislav Loredo MD, PhD CLIA Number: [id number] Blood BLOOD SPECIMEN / Unknown Lab Venipuncture / Unknown 10/19/2024 12:42 PM CDT 10/19/2024 12:50 PM CDT Catracho Guevara MD LAB - CHEMISTRY ORDERABLES Final Result [facility]) [address] [place] [address], [facility] * SCLERODERMA 70 (SCL) ANTIBODY (10/19/2024 12:42 PM CDT) SCL-70 Antibody 1 0 - 40 AU/mL 10/21/2024 10:13 AM CDT [facility] ([facility]) Comment: INTERPRETIVE INFORMATION: Scleroderma (Scl-70) (POP) Ab, IgG 29 AU/mL or Less ............. Negative 30 - 40 AU/mL ................ Equivocal 41 AU/mL or Greater .......... Positive The presence of Scl-70 antibodies (also referred to as topoisomerase I, moreno-I or YOSVANY) is considered diagnostic for systemic sclerosis (SSc). Scl-70 antibodies alone are detected in about 20 percent of SSc patients and are associated with the diffuse form of the disease, which may include specific organ involvement and poor prognosis. Scl-70 antibodies have also been reported in a varying percentage of patients with systemic lupus erythematosus (SLE). Scl-70 (moreno-1) is a DNA binding protein and anti-DNA/DNA complexes in the sera of SLE patients may bind to moreno-I, leading to a false-positive result. The presence of Scl-70 antibody in sera may also be due to contamination of recombinant Scl-70 with DNA derived from cellular material used in immunoassays. Strong clinical correlation is recommended if both Scl-70 and dsDNA antibodies are detected. Negative results do not necessarily rule out the presence of SSc. If clinical suspicion remains, consider further testing for centromere, RNA polymerase III and U3-BIOFUELS PRODUCT DEVELOPMENT MANAGER, PM/Scl, or Th/To antibodies. Performed By: [facility] [address] [place] [address] Forensic Social Worker: Stanislav Loredo MD, PhD CLIA Number: [id number] Blood BLOOD SPECIMEN / Unknown Lab Venipuncture / Unknown 10/19/2024 12:42 PM CDT 10/19/2024 12:51 PM CDT Catracho Guevara MD LAB - CHEMISTRY ORDERABLES Final Result [employer] [facility]) [address] * DNA ANTIBODY DOUBLE STRANDED (10/19/2024 12:42 PM CDT) [facility] dsDNA Antibody 5 0 - 24 IU 10/21/2024 7:38 PM CDT [facility] ([facility]) Comment: INTERPRETIVE INFORMATION: Double-Stranded DNA (dsDNA) Ab IgG ADRIANA 24 IU or less........Negative 25-30 IU.............Borderline Positive 30-60 IU.............Low Positive 60-200 IU............Positive 201 IU or greater....Strong Positive Positivity for anti-double stranded DNA (anti-dsDNA) IgG antibody is a diagnostic criterion of systemic lupus erythematosus (SLE). Specimens are initially screened by enzyme-linked immunosorbent assay (ADRIANA). If ordered as reflex ([id number]), positive ADRIANA results (>24 IU) will be reflexed to a highly specific IFA titer (Crithidia luciliae indirect fluorescent test [CIARA') for confirmation. Some patients with early or inactive SLE may be positive for anti-dsDNA IgG by ADRIANA but negative by CIARA. If the patient is negative by CIARA but positive by ADRIANA and clinical suspicion remains, consider antinuclear antibody (GUMARO) testing by IFA. Additional information and recommendations for testing may be found at [email or web address]. Performed By: [facility] [address] [place] [address] Forensic Social Worker: Stanislav Loredo MD, PhD CLIA Number: [id number] Blood BLOOD SPECIMEN / Unknown Lab Venipuncture / Unknown 10/19/2024 12:42 PM CDT 10/19/2024 12:50 PM CDT us Catracho Guevara MD LAB - HEMATOLOGY ORDERABLES Tierney l Result [facility]) [address] [place] [address] * ALDOLASE (10/19/2024 12:42 PM CDT) Aldolase 2.7 1.2 - 7.6 U/L 10/21/2024 11:05 PM CDT [facility] ([facility]) Comment: REFERENCE INTERVAL: Aldolase Access complete set of age- and/or gender-specific reference intervals for this test in the [facility] Laboratory Test Directory ([employer]). Performed By: [facility] [employer] [address] [place] [address] Forensic Social Worker: Stanislav Loredo MD, PhD CLIA Number: [id number] Blood BLOOD SPECIMEN / Unknown Lab Venipuncture / Unknown 10/19/2024 12:42 PM CDT 10/19/2024 12:50 PM CDT us Catracho Guevara MD LAB - CHEMISTRY ORDERABLES Final Result Performing Organization Address City/[facility]/ZIP Co de Phone Number [facility]) [address] [place] [address] * CYCLIC CITRULLINATED PEPTIDE(CCP) AB IGG (10/19/2024 12:42 PM CDT) CCP Antibody IgG 0.8 <5.0 U/mL 10/19/2024 1:47 PM CDT [facility] LABORATORY [facility] Blood BLOOD SPECIMEN / Unknown Lab Venipuncture / Unknown 10/19/2024 12:42 PM CDT 10/19/2024 12:50 PM CDT us Catracho Guevara MD LAB - CHEMISTRY ORDERABLES Final Result [address] [address], [facility] [phone] * (ABNORMAL) ERYTHROCYTE SEDIMENTATION RATE (10/19/2024 12:42 PM CDT) Erythrocyte Sedimentation Rate Westergren 32(H) 0 - 30 MM/HR 10/19/2024 1:34 PM [facility] Blood BLOOD SPECIMEN / Unknown Lab Venipuncture / Unknown 10/19/2024 12:42 PM CDT 10/19/2024 12:54 PM CDT us Catracho Guevara MD LAB - HEMATOLOGY ORDERABLES Tierney l Result [facility] [address] [place] [address], [facility] [phone] * (ABNORMAL) CBC WITH DIFFERENTIAL (10/19/2024 12:42 PM CDT) Pathologist [facility] WBC 4.5 4.0 - 10.7 x10E9/L 10/19/2024 1:07 PM [facility] RBC Count 3.85(L) 3.90 - 5.20 x10E12/L 10/19/2024 1:07 PM [facility] Hemoglobin 12.2 11.9 - 15.8 g/dL 10/19/2024 1:07 PM [facility] Hematocrit 36.5 34.8 - 46.1 % 10/19/2024 1:07 PM [facility] MCV 94.8 80.0 - 98.0 fL 10/19/2024 1:07 PM [facility] MCH 31.7 26.7 - 33.6 pg 10/19/2024 1:07 PM [facility] MCHC 33.4 31.7 - 36.3 g/dL 10/19/2024 1:07 PM [facility] RDW-CV 13.0 11.3 - 14.8 % 10/19/2024 1:07 PM [facility] Platelet Count 265 150 - 420 x10E9/L 10/19/2024 1:07 PM [facility] MPV 9.3 7.8 - 11.4 fL 10/19/2024 1:07 PM [facility] Neutrophil % 60.3 41.0 - 74.0 % 10/19/2024 1:07 PM T [facility] Lymphocyte % 19.0 17.0 - 47.0 % 10/19/2024 1:07 PM [facility] Monocyte % 14.1(H) 3.0 - 11.0 % 10/19/2024 1:07 PM T [facility] Eosinophil % 6.0 0.0 - 7.0 % 10/19/2024 1:07 PM T [facility] Basophil % 0.4 0.0 - 1.6 % 10/19/2024 1:07 PM T [facility] Immature Granulocytes % 0.2 0.0 - 1.0 % 10/19/2024 1:07 PM T [facility] Neutrophil Absolute 2.70 1.60 - 7.50 x10E9/L 10/19/2024 1:07 PM T [facility] Lymphocyte Absolute 0.85(L) 1.00 - 4.40 x10E9/L 10/19/2024 1:07 PM T [facility] Monocyte Absolute 0.63 0.15 - 1.00 x10E9/L 10/19/2024 1:07 PM T [facility] Eosinophil Absolute 0.27 0.00 - 0.60 x10E9/L 10/19/2024 1:07 PM T [facility] Basophil Absolute 0.02 0.00 - 0.13 x10E9/L 10/19/2024 1:07 PM [facility] Blood BLOOD SPECIMEN / Unknown Lab Venipuncture / Unknown 10/19/2024 12:42 PM CDT 10/19/2024 12:54 PM CDT us Catracho Guevara MD LAB - HEMATOLOGY ORDERABLES Tierney l Result [facility] [address] [place] [address], [facility] [phone] * COMPLEMENT C4 (10/19/2024 12:42 PM CDT) Complement C4 31 15 - 57 mg/dL 10/19/2024 1:19 PM [facility] Blood BLOOD SPECIMEN / Unknown Lab Venipuncture / Unknown 10/19/2024 12:42 PM CDT 10/19/2024 12:54 PM CDT us Catracho Guevara MD LAB - SEROLOGY ORDERABLES Final Result [facility] [address] [place] [address], [facility] [phone] * (ABNORMAL) COMPREHENSIVE METABOLIC PANEL (10/19/2024 12:42 PM CDT) BUN 16 7 - 26 mg/dL 10/19/2024 1:19 PM [facility] Creatinine 0.73 0.56 - 0.96 mg/dL 10/19/2024 1:19 PM [facility] Sodium 141 136 - 145 mmol/L 10/19/2024 1:19 PM [facility] Potassium 3.8 3.5 - 4.5 mmol/L 10/19/2024 1:19 PM [facility] Chloride 109(H) 98 - 107 mmol/L 10/19/2024 1:19 PM [facility] CO2 22 22 - 29 mmol/L 10/19/2024 1:19 PM [facility] Glucose 91 70 - 99 mg/dL 10/19/2024 1:19 PM [facility] Calcium 9.9 8.4 - 10.2 mg/dL 10/19/2024 1:19 PM [facility] Protein Total 7.7 6.0 - 8.3 g/dL 10/19/2024 1:19 PM [facility] Albumin 4.1 3.4 - 5.0 g/dL 10/19/2024 1:19 PM [facility] Bilirubin Total 0.4 0.2 - 1.2 mg/dL 10/19/2024 1:19 PM [facility] Alkaline Phosphatase 56 40 - 150 U/L 10/19/2024 1:19 PM [facility] ALT 7 5 - 55 U/L 10/19/2024 1:19 PM CDT [facility] AST 18 5 - 34 U/L 10/19/2024 1:19 PM T [facility] LABORATORY [facility] Anion Gap 10 6 - 16 10/19/2024 1:19 PM T [facility] BUN/Creatinine Ratio 22 7 - 23 10/19/2024 1:19 PM T [facility] Osmolality Calculated 293 275 - 295 mOsm/kg 10/19/2024 1:19 PM T [facility] Albumin/Globulin Ratio 1.1 1.1 - 2.3 10/19/2024 1:19 PM T [facility] eGFR by CKD-EPI 90 >=90 mL/min/1.7 3 m2 10/19/2024 1:19 PM T [facility] Blood BLOOD SPECIMEN / Unknown Lab Venipuncture / Unknown 10/19/2024 12:42 PM CDT 10/19/2024 12:54 PM CDT us Catracho Guevara MD LAB - CHEMISTRY ORDERABLES Final Result [address] [address], [facility] [phone] * HEPATITIS B CORE ANTIBODY TOTAL (10/19/2024 12:42 PM CDT) HBc Antibody Total Non-reacti ve Non-reacti ve 10/19/2024 1:47 PM CDT [facility] Blood BLOOD SPECIMEN / Unknown Lab Venipuncture / Unknown 10/19/2024 12:42 PM CDT 10/19/2024 12:50 PM CDT us Catracho Guevara MD LAB - CHEMISTRY ORDERABLES Final Result [address] [address], [facility] [phone] * HEPATITIS B SURFACE ANTIGEN W RFLX CONFIRMATION (10/19/2024 12:42 PM CDT) Hepatitis B Virus Surface Antigen Non-reacti ve Non-reacti ve 10/19/2024 1:47 PM CDT [facility] Blood BLOOD SPECIMEN / Unknown Lab Venipuncture / Unknown 10/19/2024 12:42 PM CDT 10/19/2024 12:50 PM CDT us Catracho Guevara MD LAB - CHEMISTRY ORDERABLES Final Result [address] [address], [place] [phone] * CK BLOOD (10/19/2024 12:42 PM CDT) [facility] CK Total 31 30 - 200 U/L 10/19/2024 1:19 PM CDT [facility] Blood BLOOD SPECIMEN / Unknown Lab Venipuncture / Unknown 10/19/2024 12:42 PM CDT 10/19/2024 12:54 PM CDT us Catracho Guevara MD LAB - CHEMISTRY ORDERABLES Final Result Performing Organization Address [facility] Co de Phone Number [address] [address], [place] [phone] * HEPATITIS C ANTIBODY (10/19/2024 12:42 PM CDT) [facility] Hepatitis C Antibody Non-react john Non-reac tive 10/19/2024 1:47 PM CDT [facility] Comment:Hepatitis C Antibody screen indicates no serologic evidence of past or current infection with Hepatitis C Virus. Patients with unexplained liver disease who are immunocompromised or suspected of having acute Hepatitis C infection may benefit from Nucleic Acid Test (DOMENICA) for Hepatitis C Viral RNA to confirm Hepatitis C status. Blood BLOOD SPECIMEN / Unknown Lab Venipuncture / Unknown 10/19/2024 12:42 PM CDT 10/19/2024 12:50 PM CDT us Catracho Guevara MD LAB - CHEMISTRY ORDERABLES Final Result Performing Organization Address City/[facility]/ZIP Co de Phone Number [address] [address], [place] [phone] * COMPLEMENT C3 (10/19/2024 12:42 PM CDT) Complement C3 138 82 - 193 mg/dL 10/19/2024 1:19 PM CDT [facility] LABORATORY [facility] Blood BLOOD SPECIMEN / Unknown Lab Venipuncture / Unknown 10/19/2024 12:42 PM CDT 10/19/2024 12:54 PM CDT us Catracho Guevara MD LAB - CHEMISTRY ORDERABLES Final Result [facility] [address] [place] [address], [place] [phone] from Last 3 Months Insurance [facility] [place] [id number] Care Teams Superintendent Plant Relationship Specialty Start Date End Date Anju Lucia MD [address] [place] [address] PCP - General Dermatology 10/19/24
--- OUTSIDE RECORDS SUMMARY | 2024-11-04 14:55 | XMS_ITS | Encounter Summary ---
Author Organization [facility] Address [address] [place] [address] Care Team Providers Care Passenger Service Supervisor Name Role Phone Naheed Michelle MD Primary Care Provider + Encounter Details Date Type Department Care Team (Late st Contact Info) Description 09/14/2024 Results Follow-Up [facility] INSPECTOR OPEN DIE - Medical [address] [address] Ion Celaya MD [address] [place] [phone] XR DEXA BONE DENSITY AXIAL 1 OR MORE SITES Social History Tobacco Use Types Packs/Day Years Used Date Smoking Tobacco: Former Smokeless Tobacco: Never Alcohol Use Standard Drinks/Week Comments Yes 0 (1 standard drink = 0.6 oz pur e alcohol) Comments No Sex and Gender Information Value Date Recorded Sex Assigned at Not on file 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
--- OUTSIDE RECORDS SUMMARY | 2024-11-04 14:55 | XMS_ITS | Encounter Summary ---
Author Organization [facility] Address [address] [facility] [place] [address] Care Team Providers Care Animal Cruelty Investigation Supervisor Name Role Phone Naheed Michelle MD Primary Care Provider [phone] Sara Ibrahim Primary Care Provider [phone] Anju Lucia MD Primary Care Provider Unav ailable Encounter Details Date Type Department Care Team (Late st Contact Info) Description 12/31/2022 Lab Requisition [facility] - DermPath Lab [address] [facility], [facility] [place] [address] Anju Lucia MD [address] [facility] 3 [place] [address] Social History Tobacco Use Types Packs/Day Years Used Date Smoking Tobacco: Never Smokeless Tobacco: Never Alcohol Use Standard Drinks/Week [...] on file 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 Gender Identity Not on file Sexual Orientation Not on file documented as of this encounter Plan of Treatment Upcoming Encounters Date Type Department Care Team (Late st Contact Info) Description 12/11/2024 2:00 PM CDT Office Visit [facility] - Rheumatology [address] [place] [address], [place] [address] Abbey Warner MD [address] [place] [address] [place] [address] documented as of this encounter Procedures Procedure Name Priority Date/Time Associated Diagnosis Comments DERMATOPATHOLOGY Routine 12/31/2022 2:20 PM CDT documented in this encounter Results * DERMATOPATHOLOGY (12/31/2022 2:20 PM CDT) Case Report Dermatopathology Report Case: [id number] Authorizing Provider: Anju Lucia MD Collected: 12/31/2022 02:20 PM Ordering Location: [facility] DermPath Lab Received: 01/01/2023 01:31 PM Pathologist: Clementine Rowell MD Specimen: Skin, upper back 4:29 PM CDT DERMATOPATHOLOGY LABORATORY Final Diagnosis Specimen A. 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 The specimen consists of a shave biopsy measuring 4x3x5 mm. Jar 0. 4:29 PM CDT DERMATOPATHOLOGY LABORATORY Microscopic Description Specimen A. SKIN, upper back: There are scattered dyskeratotic keratinocytes and vacuolar alteration along the basal cell layer. In addition, an underlying band-like infiltrate composed mostly of lymphocytes focally obscures the dermal-epidermal junction. Sections show an asscciated perifollicular lymphohistiocytic infiltrate. The epidermis is focally necrotic and covered with a scale-crust. There is fibrin at the base. Periodic acid-Rebeca (PAS) stain fails to highlight fungal elements or significant basement membrane thickening in the available sections. Additional deeper sections were obtained and reviewed. COMMENT: The histologic differential diagnosis includes a variant of lichen planus, connective tissue disease, and a lichenoid hypersensitivity reaction, such as to contact or drug, although less likely given lack of eosinophils. 3 4:29 PM CDT DERMATOPATHOLOGY LABORATORY Disclaimer An external and internal positive and negative controls are appropriate for the histochemical, immunohistochemical and immunofluorescence stain(s) in this case (if any), except where stated explicitly. The performance characteristics of the stain(s) cited in this report were developed and its performance characteristic determined by the Dermatopathology Laboratory at [facility], directed by Dr. Destiney Barcenas. These tests need not be, and therefore are not, approved by the [place] Food and Drug Administration. The tests are used for clinical purposes. Billing Codes Specimen Charges Stain Charges 34057 1 71489 1 3 4:29 PM CDT DERMATOPATHOLOGY LABORATORY Embedded Images 3 4:29 PM CDT DERMATOPATHOLOGY LABORATORY Pathology/Cytolo gy TISSUE SPECIMEN FROM SKIN / Unknown 12/31/2022 2:20 PM CDT 01/01/2023 1:31 PM CDT Anju Lucia MD LAB - PATHOLOGY/CYTOLOGY OR DERABLES Final Result DERMATOPATHOLOGY LABORATORY [facility] - Department of Dermatology [facility] Medicine [address] [place] [address], 3rd Floor [place], [place] [address] [place] [address] documented in this encounter Visit Diagnoses Not on filedocumented in this encounter Care Teams Animal Cruelty Investigation Supervisor Relationship Specialty Start Date End Date Naheed Michelle MD [address] [place] [address] [place] [address] PCP - General Family Medicine 09/12/21 04/19/24 Sara Ibrahim [address] [place] [phone] PCP - General 04/20/24 10/18/24 Anju Lucia MD [facility] [place] [address] PCP - General Dermatology 10/19/24 documented as of this encounter
--- OUTSIDE RECORDS SUMMARY | 2024-11-04 14:55 | XMS_ITS | Encounter Summary ---
Author Organization [facility] Address [address] [place] [address] Care Team Providers Care Merchant Tailor Name Role Phone Naheed Michelle MD Primary Care Provider + Encounter Details Date Type Department Care Team (Late st Contact Info) Description 09/13/2024 Results Follow-Up [facility] PREPARATORY TECHNICIAN - Medical [address] [address] Xiomara Gage MD [address] [place] [phone] MAMMO 3D CLARI SCREEN BILAT W OR WO CAD Social History Tobacco Use Types Packs/Day Years Used Date Smoking Tobacco: Former Smokeless Tobacco: Never Alcohol Use Standard Drinks/Week Comments Yes 0 (1 standard drink = 0.6 oz pur e alcohol) Comments No Sex and Gender Information Value Date Recorded Sex Assigned at Not on file 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
--- OUTSIDE RECORDS SUMMARY | 2024-11-04 14:55 | XMS_ITS | Continuity of Care Document ---
Author Organization [place] [facility], [facility] Estephania Lucas Address [address] [place] [address] Care Team Providers Care Handling Tech Name Role Phone HALLIE MICHELLE Primary Care Provider HALLIE MICHELLE Referring Provider RAJAN FRANCO Primary Care Provider [phone] Assessment No assessment recorded. Plan of Treatment Reminders Order Date Submit Date Provider Last Modified By Organization Details Last Modified Time Details Appointments None recorded. Lab None recorded. Referral None recorded. Procedures None recorded. Surgeries None recorded. Imaging US, neck, soft tissue [address] [facility], [address], [address], [place], [address], 12:34:23 Medication Orders pilocarpine 5 mg tablet 2024 025 [id number], [address] , [place], [place], [id number], 12:34:31 Patient TargetsNo targets recorded. Patient InstructionsNo instructions recorded. Reason for Referral None Reported. Results Created Date Observation Date Name Description Value Unit Range Abnormal Flag Note LastModifiedBy Organization Detail LastModifiedTime 11/05/1911/03/2024 imagi ng/di agnos tic resul t No observ ation record ed. [facility] [address], [place], [address], 11/04/2024 10:04:52 Result Notes None recorded. Problems Name Problem SNOMED Code Status Onset Date Resolution Date Notes Provider Name and Address Organization Details Recorded Time Pain in lower limb 53229343 Completed 02/17/2024 EASTON Hussein [address], [address], [place], [address] , [facility] 4 12:08:01 Pain of left shoulder joint 92539571681 536706 Completed 202108/29/2024 EASTON Hussein [address], [address], [place], [address] , [facility] 5 10:46:52 Abdominal pain 83663768 Completed 02/17/2024 EASTON Hussein [address], [address], [place], [address] , [facility] 4 12:07:28 Lichen sclerosus et atrophicu s of the vulva Completed 02/17/2024 EASTON Hussein [address], [address], [place], [address] , [facility] 4 12:07:50 Low back pain 436711714 Active Not Available [facility] 3 13:12:08 Adhesive capsuliti s of left shoulder 33852710563 9107 Active 2021 Not Available [facility] 3 13:12:08 Lymphaden opathy 62385981 Completed 02/17/2024 EASTON Hussein [address], [address], [place], [address] , [facility] 4 12:07:14 Otitis externa 5540312 Completed 201802/17/2024 EASTON Hussein [address], [address], [place], [address] , [facility] 4 12:07:54 Pain of shoulder region 48216741 Active Not Available [facility] 3 13:12:09 Cough 42217685 Completed 02/17/2024 EASTON Hussein [address], [address], [place], [address] , [facility] [employer] [facility] [employer] 4 12:07:34 Otitis media 39602687 Completed 201802/17/2024 EASTON Hussein [address], [address], [place], [address] , [employer] [facility] [employer] [facility] [employer] 4 12:07:58 Injury of chest wall 03133844 Completed 02/17/2024 EASTON Hussein [address], [address], [place], [address] , [facility] [employer] [facility] [employer] 4 12:07:42 Pain of multiple joints 63208273 Active 2022 Hallie Michelle MD [address], [address], [place], [address] , [facility] [employer] [facility] [employer] 3 13:20:13 Leukopeni a 17947462 Active 2022 Hallie Michelle MD [address], [address], [place], [address] , [employer] [facility] [employer] [facility] [employer] 3 11:57:49 Lichen planus 7883376 Active 2022 Hallie Michelle MD [address], [address], [place], [address] , [employer] [facility] [employer] [facility] [employer] 3 11:58:23 Acute situation al disturban ce 324061887 Active 2022 Hallie Michelle MD [address], [address], [place], [address] , [employer] [facility] [employer] 3 12:01:34 Pain of left knee joint 41474275758 4107 Completed 202208/29/2024 EASTON Hussein [address], [address], [place], [address] , [facility] [place] [facility] 5 10:46:05 Bilateral osteoarth ritis of knees 16678052818 9107 Active 2022 CHRISTA Ann [address], [address], [place], [address] , [facility] 3 11:54:35 Vitamin D deficienc y 42123773 Active 2023 Hallie Michelle MD [address], [address], [place], [address] , [facility] 4 15:15:31 Acute otitis externa 98917044 Completed 202302/17/2024 EASTON Hussein [address], [place], [address] , [facility] 4 12:07:20 Polyarthr opathy 08636014 Active 2023 EASTON Hussein [address], [address], [place], [address] , [facility] 4 12:00:24 Generaliz ed rash 796773919 Active 2023 EASTON Hussein [address], [address], [place], [address] , [facility] 4 12:17:50 Acute urinary tract infection 235615538 Active 2023 EASTON Hussein [address], [place], [address] , [facility] 4 16:41:05 Anti-nucl ear factor detected 584678186 Active 2023 EASTON Hussein [address], [address], [place], [address] , [facility] 4 08:34:27 Dermatomy ositis 628450935 Active 2023 EASTON Hussein [address], [place], [address] , [facility] [employer] [facility] 4 15:45:53 Seasonal allergic rhinitis 089941158 Active 2024 EASTON Hussein [address], [address], [place], [address] , [facility] 5 10:47:01 Thyroid nodule 716761628 Active 2024 Tammy Burgos RN [facility], [facility] [employer] [facility] 5 12:31:45 Xerostomi a 80976709 Active 2024 Marco Antonio Vale MD [address] [facility], [address], [place], [address] , [facility] [employer] [facility] 5 12:33:36 Sialoaden itis 32063464 Active 2024 Marco Antonio Vale MD [address] [facility], [address], [place], [address] , [facility] [employer] [facility] 5 12:33:49 Problem Notes None recorded. Procedures Surgical History Date Name Laterality Status Provider Name and Address Organization Details Recorded Time 08/29/19 Medicare Wellness CPT Code, subsequent completed EASTON Hussein [address] [facility], [address], [place], [address], [facility] [employer] [facility] 08/29/2024 11:08:24 08/26/19 24 Medicare Wellness CPT Code, subsequent completed Khadra Cuba RN [facility] [employer] [facility] 08/26/2023 15:18:56 07/24/19 24 colonoscopy completed Priya Dillard RN [facility] [employer] [facility] 08/29/2024 10:34:09 07/05/19 24 Date of Last Colonoscopy completed Priya Dillard RN [facility] [employer] [facility] 08/29/2024 10:34:44 02/17/20 14 colonoscopy completed Not Available [facility] 09/03/19 13:11:44 tonsillectomy completed Not Available [facility] 09/02/2022 13:11:44 Imaging Results None recorded. Procedure Notes None recorded. Medical Equipment None [...] administe red by the provider 06/24 completed [facility]: 0003- 0494- 20 Not Available Not Available [...] EVERY NIGHT AT BEDTIME NEEDED FOR ITCHING 08/15 /2024 completed Not Available Not Available Not Available [...] completed Not Available Not Available Not Available Basile 3 Fish Oil 04/07 completed Not Available [...] administe red by the provider 06/24 completed [facility]: 0409- 4276- 17 Not Available Not Available Not Available Zostavax (PF) 19,400 unit/0.65 mL subcutaneou s suspension ADM 0.65ML SC UTD 04/07 completed Not Available Not Available Not Available Fluvirin 0796-6170 45 mcg (15 mcg x 3)/0.5 mL intramuscul ar suspension 12/26 completed Not Available Not Available Not Available Fluvirin 7314-3697 45 mcg (15 mcg x 3)/0.5 mL [...] Available Not Available Not Available Afluria Qd 2018- (36 mos up)(PF)60 mcg (15 mcg x4)/0.5 [...] Updated DateTime 11/02/2024 170.18 cm 18.4 kg/m2 61364.18 g 97.7 [degF] Tammy Burgos RN [place] [facility] 11/02/2024 12:13:48 Social History Question Answer Notes LastModified by Organizat ion Details LastModified Time Tobacco Smoking Status Never Smoker Not Available [facility] 09/02/2022 13:11:39 Do You Have An Advance Directive? No MIGRATION.[id number] 8519 Information not available 09/02/2022 What Is Your Level Of Alcohol Consumption? None Information not available 05/24/2023 Are You Blind Or Do You Have Difficulty Seeing? No MIGRATION.006121 1475 Information not available 09/02/2022 What Is Your Level Of Caffeine Consumption? Moderate MIGRATION.932456 9257 Information not available 09/02/2022 What Is Your Code Status? Full Code MIGRATION.[id number] 5832 Information not available 09/02/2022 In The 14 Days Before Symptom Onset, Have You Had Close Contact With A Laboratory-confir med COVID-19 While That Case Was Ill? No MIGRATION.583445 3849 Information not available 09/02/2022 In The 14 Days Before Symptom Onset, Have You Had Close Contact With A Person Who Is Under Investigation For COVID-19 While That Person Was Ill? No MIGRATION.069812 3786 Information not available 09/02/2022 Are You Deaf Or Do You Have Serious Difficulty Hearing? No MIGRATION.602383 5154 Information not available 09/02/2022 What Type Of Diet Are You Following? REGULAR MIGRATION.477297 5857 Information not available 09/02/2022 What Is Your Occupation? [employer] MIGRATION.807375 5320 Information not available 09/02/2022 Have There Been Any Changes To Your Family Or Social Situation? No MIGRATION.538574 4609 Information not available 09/02/2022 What Is The Fluoride Status Of Your Home? Unknown MIGRATION.549702 1595 Information not available 09/02/2022 Do You Use Insect Repellent Routinely? Yes MIGRATION.992210 9284 Information not available 09/02/2022 Where Do You Live? [facility] MIGRATION.142494 8432 Information not available 09/02/2022 Advance Directive- Providers [...] Do You Have A Medical Power Of Ice Cream Maker? No MIGRATION.823720 9411 Information not available 09/02/2022 What Was The Date Of Your Most Recent Tobacco Screening? 08/26/2023 [email or web address] Information not available 08/26/2023 How Many Children Do You Have? 1 Information not available 02/17/2024 Have You Ever Been Counseled For Unhealthy Alcohol Use? No MIGRATION.855365 1640 Information not available 09/02/2022 Do You Have Any Pets? No MIGRATION.729330 0781 Information not available 09/02/2022 What Is Your Relationship Status? MIGRATION.614754 6100 Information not available 09/02/2022 Do You Use Your Seat Belt Or Car Seat Routinely? No MIGRATION.251800 3301 Information not available 09/02/2022 Do You Have Smoke And Carbon Monoxide Detectors In Your Home? Yes MIGRATION.692929 2467 Information not available 09/02/2022 Are You Passively Exposed To Smoke? No MIGRATION.201228 2279 Information not available 09/02/2022 Are There Any Smokers In Your House? No MIGRATION.927944 8522 Information not available 09/02/2022 Do You Participate In Social Media? Yes Information not available 02/17/2024 Do You Feel Stressed (tense, Restless, Nervous, Or Anxious, Or Unable To Sleep At Night)? [id number] MIGRATION.405048 9486 Information not available 09/02/2022 Do You Use Any Illicit Or Recreational Drugs? No MIGRATION.683838 2111 Information not available 09/02/2022 Do You Use Sunscreen Routinely? Yes MIGRATION.855406 8405 Information not available 09/02/2022 Has Tobacco Cessation Counseling Been Provided? No MIGRATION.561640 2185 Information not available 09/02/2022 Have You Recently Traveled Abroad? No MIGRATION.109881 1299 Information not available 09/02/2022 Are You Currently In School? No MIGRATION.704201 6196 Information not available 09/02/2022 Do You Have Any Dietary Restrictions? No MIGRATION.970537 9897 Information not available 09/02/2022 Do You Or Have You Ever Used Any Other Forms Of Tobacco Or Nicotine? No MIGRATION.438732 4363 Information not available 09/02/2022 Sex: Unknown Functional Status Question Answer Note LastModified by Organizat ion Details LastModified Time Do you have difficulty walking or climbing stairs? No MIGRATION.8676974 026 Information not available 09/02/2022 Do you have transportation difficulties? No MIGRATION.7786750 026 Information not available 09/02/2022 Are you able to walk? YESWOREST MIGRATION.6634773 026 Information not available 09/02/2022 Do you have difficulty doing errands alone? No MIGRATION.3895402 026 Information not available 09/02/2022 Are you able to care for yourself? No MIGRATION.2800650 026 Information not available 09/02/2022 Do you have difficulty dressing or bathing? No MIGRATION.3165638 026 Information not available 09/02/2022 What is your exercise level? Occasional MIGRATION.9166162 026 Information not available 09/02/2022 Mental Status Question Answer Note LastModified by Organizat ion Details LastModified Time Do you have difficulty concentrating, remembering or making decisions? No MIGRATION.723464303 6 Information not available 09/02/2022 Family History Relationship Description Onset Age of this Age Resolved Age Notes LastModified by Organization Details LastModified Time Mother Heart disease MIGRATION.717 [id number] Not available 09/02/2022 13:11:44 Father Cirrhosis of liver MIGRATION.715 [id number] Not available 09/02/2022 13:11:44 Brother Heart disease Not available 2022 11:08:34 Unspecified Relation Hypertensive disorder [facility] Not available 05/24/2023 11:09:14 Notes:No family h/o [...] HEARING PROBLEMS N MUMPS N SHINGLES N BOWEL PROBLEMS N FEMALE PROBLEMS / INFECTIONS N DEPRESSION (INCLUDING POST ) N STROKE/TIA N THYROID DISEASE N ULCERS N BENIGN PROSTATIC HYPERPLASIA N MEASLES N CERVICALGIA N HYPOTENSION N TB SKIN TEST N MYOCARDIAL INFARCTION N PARAPELGIA N OBESITY [...] GLAUCOMA N FOOT PROBLEM N DIVERTICULITIS N CHICKENPOX N SLEEP APNEA N ALLERGIES/HAYFEVER N INFECTIOUS DISEASE N HEART ARRHYTHMIA N PROSTATE N INSOMNIA N HIGH CHOLESTEROL / HYPERLIPIDEMIA N HYPERTHYROIDISM N EYE PROBLEMS N EATING DISORDER N EDEMA N CHRONIC PAIN SYNDROME N CONSTIPATION N CAROTID BLOCKAGE N BACK / NECK PROBLEMS N HAVE YOU BEEN HOSPITALIZED OR SEEN IN [facility] IN THE PAST YEAR ? N ATHEROSCLEROSIS [...] DISORDER N ALZHEIMER'S DISEASE N PAIN N HERPES N DEMENTIA N HEADACHES/MIGRAINES N SEIZURES/EPILEPSY N VASCULAR DISEASE N PACEMAKER N DIZZINESS N HEART DISEASE/HEART PROBLEMS N KIDNEY DISEASE N DEVELOPMENTAL OR BEHAVIORAL DISORDERS N MULTIPLE SCLEROSIS N SCARLET FEVER N MENTAL DISORDER/ILLNESS N CARDIAC ARRHYTHMIA N CANCER: SPECIFY N PNEUMONIA N ATRIAL FIBRILLATION N Gall [...] quadrivalent, PF 3 completed Hallie Michelle MD [address] [place] [address], [address], [facility] [employer] [facility] 04/02/2023 09:30:17 Influenza, split virus, trivalent, PF 3 completed Priya Dillard RN null, [facility] [employer] [facility] 02/17/2024 11:33:29 influenza, unspecified formulation 2 completed Not Available [facility] 09/02/2022 13:14:40 COVID-19, mRNA, LNP-S, PF, 3 mcg/0.2 mL dose, yarelis-sucrose 1 completed Priya Dillard RN null, [facility] [employer] [facility] 02/17/2024 11:33:29 Influenza, split virus, quadrivalent, preservative 8 completed Not Available [facility] 09/02/2022 13:14:40 Tdap 2 completed Not Available [facility] 09/02/2022 13:14:40 Tdap 9 completed Priya Dillard RN null, [facility] [employer] [facility] 02/17/2024 11:33:29 Influenza, split virus, quadrivalent, preservative 9 completed Priya Dillard RN null, [facility] [employer] [facility] 02/17/2024 11:33:29 pneumococcal polysaccharide PPV23 2 completed Not Available [facility] 09/02/2022 13:14:41 Past Encounters Encounter ID Performer Location Encounter Start Date Encounter Closed Date Diagnosis/Indication Diagnosis SNOMED-CT Code Diagnosis ICD10 Code Diagnosis Note [id number] Marco Antonio Vale MD [facility] Estephania Lucas [address] [place] [address] 11/02/2024 11:45:19 11/03/2024 15:58:08 Xerostomia 89617305 K11.7 Sialoadenitis 94633396 K 11.20 Health Concerns Section Related Observation LastModified by Organization Detai ls LastModified Time None Recorded Concern Status LastModified by Organization Details LastModified Time None Recorded Payers Encounter Date Sequence Insurance Name Policy Number Policy Langston Covered Member ID Langston Member ID Guarantor Name 11/02/2024 1 [place] Georgiana Ha [id number] Georgiana Ha 11/02/2024 2 [employer] [facility] (MEDICARE SUPPLEMENT) Georgiana Ha [id number] Georgiana Ha Notes Date Note Type Note Provider Name and Address Organization Details Recorded Time 11/02/2024 text/html This patient is here for ear follow-up but she reports swelling on both sides of her neck but mostly on the right. Has occasional difficulty swallowing. 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 She reports dry mouth all the time. Marco Antonio Vale MD [address] [place] [address], [place], [address], [facility] [employer] [facility] 11/02/2024 12:34:48 OBGyn Episode No OBEpisode recorded.
== END 2024-11-03 19:59 | disposition home or self-care (01) ==
PROVIDERS: Emergency Medicine; Emergency Provider Emergency Medicine
DX: M54.2 Cervicalgia (principal); R07.9 Chest pain, unspecified
CPT/HCPCS: 36415; 70496; 70498; 71046; 80053; 83690; 84484; 85025; 85610; 85730; 93005; 99284; A9270; Q9967

== ENCOUNTER 2024-11-06 12:58 | Outpatient (CLI) | payer MEDICARE, OTHER, SELFPAY ==
--- NOTE | ~2024-11-06 | US_ITS ---
Thyroid ultrasound. Clinical History: Thyroid nodule Findings: Real-time sonography of the thyroid gland was performed. The right lobe measures 4.4 x 1.4 x 1.1 cm. The left lobe measures 3.4 x 0.9 x 1.0 cm. The isthmus is 2 mm in AP diameter. There is a 4 mm hypoechoic nodule in the right midpole, possibly complex cystic in nature. There is a n additional 7 x 4 x 7 mm solid nodule at the right mid to lower pole, mixed hypoechoic and hyperecho ic. Impression: Subcentimeter right thyroid lobe nodules, as above. Given size, no definitive follow-up is required.. Reviewed, dictated and finalized at location . Impression: Subcentimeter right thyroid lobe nodules, as above. Given size, no definitive f ollow-up is required..
== END 2024-11-06 12:59 | disposition home or self-care (01) ==
LOC: MICIMG 13:00
PROVIDERS: Visit Provider Otolaryngology
DX: E04.2 Nontoxic multinodular goiter (principal)
CPT/HCPCS: 76536